=== PATIENT | female | born 1955 | race Caucasian/White ===

== ENCOUNTER 2016-05-04 12:39 | Emergency (ER) | payer OTHER ==
[2016-05-04] MEDS ORDERED: DICYCLOMINE HCL INJ 20 MG/2 ML AMP IM ONE (13:28)
--- NOTE | 2016-05-04 13:38 | ED.PDOC ---
History of Present Illness - General Chief Complaint: Abdominal Pain Stated Complaint: mid epigastric discomfort Time Seen by Provider: 05/04/16 12:51 Information Source: patient, RN notes reviewed, Vital Signs reviewed Exam Limitations: no limitations - History of Present Illness Initial Comments: This 60 y/o female comes in complaining of epigastric pain -- severe. It is a sharp pain and continuous. No radiation. She has an appointment with cardiology in a couple of weeks due to some irregularities in her EKG done by her PCP. She has had upper left chest pain for awhile. The pain today is different. She has had nausea/vomiting and diarrhea since last night. Has not eaten since yesterday morning because she could not keep anything down. Abdominal Pain Onset Location: epigastric Pain Radiation: no radiation Quality: severe, sharpness Timing/Duration: 24 hours Improving Factors: nothing Worsening Factors: eating Associated Symptoms: chest pain, diarrhea, fever/chills, headache, nausea/ vomiting, shortness of breath, weakness Review of Systems - Review of Systems Constitutional: States: chills, fever EENTM: States: no symptoms reported Respiratory: States: short of breath Cardiology: States: chest pain, palpitations Gastrointestinal/Abdominal: States: abdominal pain, diarrhea, nausea, vomiting Genitourinary: States: no symptoms reported Musculoskeletal: States: back pain, neck pain Skin: States: no symptoms reported Neurological: States: headache Endocrine: States: intolerance to cold Hematologic/Lymphatic: States: no symptoms reported All other Systems: Reviewed and Negative Past Medical History (General) - Patient Medical History Hx Seizures: No Hx Stroke: No Hx Dementia: No Hx Asthma: No Hx of COPD: No Hx Cardiac Disorders: No Hx Congestive Heart Failure: No Hx Pacemaker: No Hx Hypertension: Yes Hx Thyroid Disease: No Hx Diabetes: No Hx Gastroesophageal Reflux: Yes Hx Renal Disease: No Hx Cancer: Yes - Skin Hx of HIV: No Hx MRSA: No - Vaccination History Hx Influenza Vaccination: No Hx Pneumococcal Vaccination: Yes - Social History Hx Tobacco Use: No Family Medical History - Family History Mother Family History: Unknown Living Status: Unknown Hx Family Congestive Heart Failure: Yes Hx Family Hypertension: Yes Hx Family Stroke: Yes Hx Family Diabetes: Yes Father Hx Family Congestive Heart Failure: Yes Physical Exam - Physical Exam General Appearance: Alert, Obvious distress Eyes, Ears, Nose, Throat Exam: normal ENT inspection Respiratory: lungs clear, normal breath sounds, no respiratory distress, no accessory muscle use Cardiovascular/Chest: regular rate, rhythm, no edema, no gallop Gastrointestinal/Abdominal: normal bowel sounds, soft, no organomegaly, tenderness - epigastric and RUQ Extremity: normal range of motion, non-tender, normal inspection, no pedal edema Neurologic: no motor/sensory deficits, alert, normal mood/affect, oriented x 3 Skin Exam: normal color, warm/dry Special Observations: C/O out of proportion Progress - Results/Orders Results/Orders: 05/04/16 05/04/16 12:46 13:45 Temperature 98.8 F Pulse Rate [ 67 56 L Left Radial] Respiratory 20 20 Rate Blood Pressure 117/72 124/58 [Right Arm] O2 Sat by Pulse 96 99 Oximetry 05/04/16 13:45 EKG STAT 05/04/16 14:58 URINE CULTURE W/COLONY COUNT Stat 05/04/16 15:16 Hold Metformin x 48Hrs [id number] Laboratory Results WBC 5.3 K/mm3 (4.8-10.8) 05/04/16 13:15 RBC 5.07 M/mm3 (4.20-5.40) 05/04/16 13:15 Hgb 14.8 gm/dL (12.0-16.0) 05/04/16 13:15 Hct 45.2 % (36.0-47.0) 05/04/16 13:15 MCV 89.3 fl (81.0-99.0) 05/04/16 13:15 MCH 29.2 pg (27.0-31.0) 05/04/16 13:15 MCHC 32.7 g/dL (33.0-37.0) L 05/04/16 13:15 RDW 14.4 % (11.5-14.5) 05/04/16 13:15 Plt Count 173 K/mm3 (130-400) 05/04/16 13:15 MPV 8.7 fl (7.40-10.4) 05/04/16 13:15 Absolute Neuts (auto) 4.10 K/uL (1.8-6.8) 05/04/16 13:15 Absolute Lymphs (auto) 0.90 K/uL (1.0-3.4) L 05/04/16 13:15 Absolute Monos (auto) 0.20 K/uL (0.2-0.8) 05/04/16 13:15 Absolute Eos (auto) 0.00 K/uL (0.0-0.4) 05/04/16 13:15 Absolute Basos (auto) 0.00 K/uL (0.0-0.1) 05/04/16 13:15 Neutrophils % 76.9 % (42.0-78.0) 05/04/16 13:15 Lymphocytes % 17.9 % (20.0-50.0) L 05/04/16 13:15 Monocytes % 4.1 % (2.0-9.0) 05/04/16 13:15 Eosinophils % 0.9 % (1.0-5.0) L 05/04/16 13:15 Basophils % 0.2 % (0.0-2.0) 05/04/16 13:15 Sodium 135 mmol/L (135-145) 05/04/16 13:15 Potassium 3.1 mmol/L (3.6-5.0) L 05/04/16 13:15 Chloride 102 mmol/L (101-111) 05/04/16 13:15 Carbon Dioxide 23 mmol/L (21-31) 05/04/16 13:15 Anion Gap 13.1 (12-18) 05/04/16 13:15 BUN 18 mg/dL (7-18) 05/04/16 13:15 Creatinine 0.93 mg/dL (0.6-1.3) 05/04/16 13:15 BUN/Creatinine Ratio 19.4 (10-20) 05/04/16 13:15 Random Glucose 134 mg/dL (70-105) H 05/04/16 13:15 Serum Osmolality 274.0 mOsm/L (275-295) L 05/04/16 13:15 Calcium 8.6 mg/dL (8.4-10.2) 05/04/16 13:15 Total Bilirubin 0.8 mg/dL (0.2-1.0) 05/04/16 13:15 AST 25 IU/L (10-42) 05/04/16 13:15 ALT 29 IU/L (10-60) 05/04/16 13:15 Alkaline Phosphatase 35 IU/L (42-121) L 05/04/16 13:15 Creatine Kinase 47 IU/L (26-140) 05/04/16 13:15 CK-MB (CK-2) 1.3 ng/mL (0.0-4.4) 05/04/16 13:15 CK-MB (CK-2) % Not Reportable 05/04/16 13:15 Troponin I < 0.02 ng/mL (0.01-0.05) 05/04/16 13:15 B-Natriuretic Peptide 28.1 pg/ml (0-100) 05/04/16 13:15 Serum Total Protein 6.7 gm/dL (6.4-8.2) 05/04/16 13:15 Albumin 3.7 g/dl (3.2-5.5) 05/04/16 13:15 Globulin 3.0 gm/dL (2.3-3.5) 05/04/16 13:15 Albumin/Globulin Ratio 1.2 (1.1-1.9) 05/04/16 13:15 Lipase 26 U/L (22-51) 05/04/16 13:15 Urine Color Yellow (Yellow) 05/04/16 14:58 Urine Appearance Clear (Clear) 05/04/16 14:58 Urine pH 5.5 (4.5-7.8) 05/04/16 14:58 Ur Specific [place] 1.025 (1.005-1.030) 05/04/16 14:58 Urine Protein Negative mg/dL 05/04/16 14:58 Urine Glucose (UA) Negative mg/dL (Negative) 05/04/16 14:58 Urine Ketones 40 mg/dL (NEGATIVE) H 05/04/16 14:58 Urine Blood Negative (Negative) 05/04/16 14:58 Urine Nitrite Positive H 05/04/16 14:58 Urine Bilirubin Negative (NEGATIVE) 05/04/16 14:58 Urine Urobilinogen 0.2 mg/dL (0.2-1.0) 05/04/16 14:58 Ur Leukocyte Esterase Negative (Negative) 05/04/16 14:58 Urine RBC 0-1 /hpf 05/04/16 14:58 Urine WBC 5-10 /hpf H 05/04/16 14:58 Ur Epithelial Cells 3-5 /hpf 05/04/16 14:58 Urine Bacteria 4+ H 05/04/16 14:58 - EKG/XRAY/CT EKG: Yuriy, Sinus, nonspecific ST T wave Chg Comments: 57bpm, NML axis, T-wave inv. in V1-V3, NML int., No change from 04/12 XRAY: chest Xray Comments: Bilateral atelectasis/infiltrate CT: Abd/Pelv: Gall stone, o/w NML abd CT CT Ordered: Yes CT Interpretation Call Back: No - Report CT Interpretation Call Back Date: 05/04/16 CT Interpretation Call Back Time: 16:15 Departure - Departure Clinical Impression: Cholecystitis UTI (urinary tract infection) Qualifiers: Urinary tract infection type: site unspecified Hematuria presence: without hematuria Qualifier Code: (N39.0) Urinary tract infection, site not specified Time of Disposition: 16:57 Disposition: Discharge to Home or Self Care Condition: Fair Departure Forms: ED Discharge - Pt. Copy, Patient Portal Self Enrollment Instructions: DI for Abdominal Pain-Adult, Gallstones, DI for Gallstones, Urinary Tract Infection Diet: bland diet Prescriptions: Dicyclomine HCl [Bentyl] 20 mg PO QID PRN #40 cap PRN Reason: Abdominal Cramping Ciprofloxacin HCl 250 mg PO BID #6 tab Tramadol HCl 50 mg PO Q6H PRN #15 tab PRN Reason: Abdominal Distress Ondansetron [Zofran Odt] 4 mg PO Q8H PRN #12 tab PRN Reason: Nausea/Vomiting Home Medications: Ambulatory Orders Aspirin [Baby Aspirin] 81 mg PO QD 04/02/16 Atenolol [Tenormin] 25 mg PO DAILY 04/02/16 Calcium 1,200 mg PO DAILY 04/02/16 Calcium 600 mg PO BEDTIME 04/02/16 Hydrochlorothiazide 25 mg PO DAILY 04/02/16 Lisinopril 20 mg PO DAILY 04/02/16 Nitroglycerin 0.4 mg Tab [Nitrostat] 0.4 mg SL Q 5 PRN #1 bttl 04/02/16 Omeprazole Magnesium [Prilosec Otc] 20 mg PO DAILY 04/02/16 Potassium 99 mg PO DAILY 04/02/16 Ciprofloxacin HCl 250 mg PO BID #6 tab 05/04/16 Dicyclomine HCl [Bentyl] 20 mg PO QID PRN #40 cap 05/04/16 Ondansetron [Zofran Odt] 4 mg PO Q8H PRN #12 tab 05/04/16 Tramadol HCl 50 mg PO Q6H PRN #15 tab 05/04/16
--- NOTE | 2016-05-04 14:03 | RAD ---
EXAM DESCRIPTION: X-RAY CHEST- ONE VIEW CLINICAL HISTORY: Epigastric pain. COMPARISON: 04/02/2016 TECHNIQUE: Single view of the chest. FINDINGS: There is presence of mild bilateral lower lung zone discoid atelectasis/infiltrates There is no pleural effusion There are no pneumothoraces. The cardiomediastinal silhouette is unremarkable. IMPRESSION: There is presence of mild bilateral lower lung zone discoid atelectasis/infiltrates Electronically signed by: Zack Tinoco MD 05/04/2016 14:01
--- NOTE | 2016-05-04 16:13 | CT ---
EXAM DESCRIPTION: CT ABDOMEN PELVIS WITHOUT IV CONTRAST CLINICAL HISTORY: 60-year-old female with epigastric/right upper quadrant pain. COMPARISON: None. TECHNIQUE: CT of the abdomen and pelvis was performed without contrast. Oral contrast was not administered. Multiplanar reformatted images were provided. FINDINGS: Evaluation of solid organ pathology is limited secondary to lack of intravenous contrast. Within these limitations, the following observations are made. Chest: Evaluation through the lung bases reveals no focal opacity, pleural effusion or pneumothorax. Few scattered 2-4 mm pulmonary micronodules are identified throughout the bilateral lungs, a nonspecific finding may reflect sequela of nonspecific infectious or inflammatory process. Heart size is within normal limits. No pericardial effusion. Abdomen and pelvis: Diffuse hepatic steatosis. Single calcification present within the dependent gallbladder compatible with cholelithiasis. The liver, gallbladder, pancreas, spleen, bilateral kidneys and bilateral adrenal glands are otherwise within normal limits. The vessels are normal in caliber. No abdominopelvic lymph nodes are noted to be pathologically enlarged by CT measurement criteria. Slightly hazy appearance of the left anjali abdominal mesentery with scattered multiple mesenteric lymph nodes, none of which are pathologically enlarged by CT measurement criteria. Diverticular disease without findings to suggest diverticulitis. The bowel is within normal limits with fecal debris present throughout the large bowel. There is no abnormal bowel wall thickness or bowel dilation. No free air. No free abdominopelvic fluid collections. The appendix is not visualized. The osseous structures reveal degenerative change and lower lumbar spine postoperative change with surgical screws traversing the bilateral pedicles of L5 and S1 vertebral levels. Stabilization rods are present. Chronic appearing grade 1/2 anterolisthesis of L5 relative to S1 of uncertain etiology, may be secondary to sequela of prior trauma, facet degeneration without findings to suggest clear pars defect, however may be sclerosis and fused. Intervertebral body L5-S1 fusion present. Few scattered foci of hypoattenuation with striation present within the visualized thoracolumbar spine compatible with hemangioma. IMPRESSION: 1. No specific acute intra-abdominal findings are noted to suggest etiology of the patient's abdominal pain. 2. Few scattered 2-4 mm pulmonary micro nodules are identified throughout the bilateral lungs, a nonspecific finding may reflect sequela of nonspecific infectious or inflammatory process. 3. Diffuse hepatic steatosis. 4. Single calcification present within the dependent gallbladder compatible with cholelithiasis. 5. Diverticular disease without findings to suggest diverticulitis. As per Fleischner Society guidelines for follow-up and management of pulmonary nodules: For patient at low risk (minimal or absent history of smoking and of other known risk factors), no follow-up needed. For patient at high risk (history of smoking or of other known risk factors), recommend initial follow-up chest CT at 12 months; if unchanged, no further follow-up needed. Electronically signed by: Patricia Wilkinson MD 05/04/2016 16:12
[2016-05-04] MEDS ORDERED: POTASSIUM CHLORIDE 20 MEQ TAB PO ONE (16:45)
[2016-05-04 17:17] VITALS: BP 122/72; TEMP 98.9; O2SAT 94
== END 2016-05-04 17:12 | disposition home or self-care (01) ==
LOC: ER 12:39
DX: K81.9 Cholecystitis, unspecified (principal); N39.0 Urinary tract infection, site not specified; Z79.82 Long term (current) use of aspirin; Z79.899 Other long term (current) drug therapy; Z82.49 Family history of ischemic heart disease and other diseases of the circulatory system; K21.9 Gastro-esophageal reflux disease without esophagitis; I10 Essential (primary) hypertension; Z85.828 Personal history of other malignant neoplasm of skin
CPT/HCPCS: 71010; 74176; 80053; 81001; 82550; 82553; 83690; 83880; 84484; 85025; 87086; 87088; 87186; 93005; J0500

== ENCOUNTER 2016-09-09 05:56 | Day surgery (SDC) | payer OTHER ==
[2016-09-09] MEDS ORDERED: SODIUM CHL 0.9% 100ML MINI-BAG 100 ML IVPB ONE (06:15)
[2016-09-09] MEDS ORDERED: ceFAZolin SODIUM 1 GM VIAL ONE (06:15)
[2016-09-09] MEDS ORDERED: LACTATED RINGERS 1,000 ML ONE (06:15)
[2016-09-09] MEDS ORDERED: DEXAMETHASONE INJ 10 MG/ML VIAL ONE (07:00)
[2016-09-09] MEDS ORDERED: ONDANSETRON INJ 4 MG/2 ML VIAL ONE (07:00)
[2016-09-09] MEDS ORDERED: PROPOFOL 200 MG/20 ML VIAL IV ONE (07:00)
[2016-09-09] MEDS ORDERED: NEOSTIGMINE METHYLSULFATE 1 MG/ML ML IV ONE (07:00)
[2016-09-09] MEDS ORDERED: ATROPINE SULFATE 0.4 MG/ML 1ML VIAL ONE (07:00)
[2016-09-09] MEDS ORDERED: METOCLOPRAMIDE HCL INJ 10 MG/2 ML VIAL ONE (07:00)
[2016-09-09] MEDS ORDERED: MIDAZOLAM INJ 5 MG/5 ML VIAL ONE (07:01)
[2016-09-09] MEDS ORDERED: ROCURONIUM BROMIDE 10 MG/ML VIAL ONE (07:01)
[2016-09-09] MEDS ORDERED: fentaNYL CITRATE INJ 50 MCG/ML AMP ONE (07:01)
[2016-09-09] MEDS ORDERED: LIDOCAINE 2 % GEL 5 ML TUBE TOP ONE (07:01)
[2016-09-09] MEDS ORDERED: HEPARIN SODIUM (PORCINE) 10,000 UNITS/ML VIAL ONE (07:57)
[2016-09-09] MEDS ORDERED: BUPIVACAINE 0.25% W/EPI 50 ML VIAL INJ ONE (07:57)
[2016-09-09] MEDS ORDERED: traMADol HCL 50 MG TAB ONE (10:45)
--- NOTE | 2016-09-09 10:50 | OP ---
DATE OF PROCEDURE: 09/09/16 PREOPERATIVE DIAGNOSIS: 1. Symptomatic cholelithiasis. 2. Fatty infiltration of the liver. POSTOPERATIVE DIAGNOSIS: 1. Symptomatic cholelithiasis. 2. Fatty infiltration of the liver. 3. Chronic cholecystitis. PROCEDURE: 1. Laparoscopic cholecystectomy with intraoperative cholangiography using fluoroscopy. 2. Wedge biopsy, right lobe of the liver. SURGEON: Charlie Chi MD. DOCUMENT PROCESSOR: None. ANESTHESIA: Local infiltration of 0.25% Marcaine with epinephrine and general endotracheal anesthesia. INDICATION: The patient is a 61-year-old female who has had right upper quadrant pain with radiation to the back and chest pain that was first felt to be cardiac in nature, however, this was ruled out. She had an ultrasound which diagnosed cholelithiasis. After the risks, benefits and alternatives to the procedure were discussed and accepted and we obtained clearance from the patient 's gum dipper, Dr. Greenfield, she was brought to the Surgical Suite today for cholecystectomy. FINDINGS: The gallbladder wall was minimally thickened. There was at least one gallstone palpable through the gallbladder. Intraoperative cholangiography revealed free flow into the duodenum with no filling defects or strictures noted. Wedge biopsy of the liver was obtained from the right lobe of the liver just lateral to the falciform ligament. Pathology is pending. DESCRIPTION OF PROCEDURE: After adequate general endotracheal anesthesia was obtained, the patient was prepped and draped in the usual sterile manner. She had been given 2 grams of Ancef. Surgical time-out was taken. The infraumbilical area was infiltrated with 0.25% Marcaine with epinephrine. A curvilinear incision was fashioned and carried down through the subcutaneous tissue to the midline fascia. Traction sutures were placed on either side of the midline. A small incision was made in the midline fascia and the peritoneum was opened bluntly. Homer trocar was introduced under direct vision into the abdominal cavity and fixed in place with the 20 mL balloon. CO2 was then insufflated until a pressure of 12 mmHg was reached and the abdomen was tympanitic in all four quadrants. When this was done, the laparoscope was introduced. The abdomen was inspected with the previously noted findings. The patient was then placed in reverse Trendelenburg position, turned to the left side. The upper abdominal ports were placed under direct vision. The gallbladder was grasped, retracted anteriorly and laterally. The neck of the gallbladder was retracted laterally. The triangle of Calot was then explored using blunt dissection with the cystic duct and cystic artery identified and isolated. They were both clipped, cystic duct was hemoclipped once proximally. The cystic artery was hemoclipped distally. A small incision was made in the cystic duct. The cholangiogram catheter was introduced through a separate stab wound in the right upper quadrant, introduced into the cystic duct and clipped in place. Cholangiograms were then taken using dye that was diluted out another 50% than normal. 15 mL of this dilute dye were used. After the cholangiogram, as much dye as possible was aspirated. The cholangiograms were done, which revealed free flow into the duodenum with no filling defects or strictures noted. When this was done, the cystic duct catheter was removed after the aspiration. The cystic duct was hemoclipped three times distally. The cystic artery was clipped twice proximally and they were then both cut. The gallbladder was then dissected free from the gallbladder bed of the liver using electrocautery. The gallbladder was removed from the infraumbilical port site in the usual manner under direct vision. When this was done, the subhepatic space was inspected and hemostasis was noted to be adequate. At this point, the wedge biopsy of the liver was performed with sharp scissors. It was removed from the infraumbilical port site and hemostasis was obtained with electrocautery turned up to 50. When hemostasis was noted to be adequate, the subhepatic and subphrenic space were irrigated copiously with saline. Again, the gallbladder bed of the liver was inspected. The kimberli hepatis was inspected and no bleeding or bile leak was identified. The biopsy site was again inspected and good hemostasis was noted. The upper abdominal ports were removed with some oozing from both the lateral and mid upper ports and these were controlled with electrocautery. The remaining port was removed and good hemostasis was noted. At this point, the CO2, the laparoscope and the infraumbilical port were removed. The infraumbilical port site fascia was approximated with a single [id number] suture of 0 Vicryl. Subcutaneous tissue was irrigated with saline. Skin edges were approximated with 4-0 Vicryl subcuticular sutures, benzoin and Steri-Strips. Sterile dressings were applied. The patient was awakened and taken to the Recovery Room in good and stable condition. Estimated blood loss was less than 50 mL. All sponge, needle and instrument counts were correct. #[id number] [facility]
[2016-09-09] MEDS ORDERED: traMADol HCL 50 MG TAB PO ONE (11:07)
[2016-09-09 13:32] VITALS: BP 115/68; TEMP 98.6; O2SAT 96
== END 2016-09-09 12:30 | disposition home or self-care (01) ==
LOC: AMB 05:56
PROVIDERS: ATTEND Surgery
DX: K80.10 Calculus of gallbladder with chronic cholecystitis without obstruction (principal); K76.0 Fatty (change of) liver, not elsewhere classified; K59.00 Constipation, unspecified; I10 Essential (primary) hypertension; K21.9 Gastro-esophageal reflux disease without esophagitis; Z88.8 Allergy status to other drugs, medicaments and biological substances; Z79.82 Long term (current) use of aspirin; Z79.899 Other long term (current) drug therapy
CPT/HCPCS: 00790; 36415; 47100; 47563; 76000; 80048; 81001; 85025; J0690; J1100; J1644; J2250; J2405; J2710; J2765; J3010; J3490; J7050; J7120

== ENCOUNTER → 2016-10-31 | Outpatient (CLI) | payer OTHER | END | disposition home or self-care (01) | LOC: LAB.O 09:23 | PROVIDERS: ATTEND Emergency Medicine | DX: R53.83 Other fatigue (principal); Z13.220 Encounter for screening for lipoid disorders; I10 Essential (primary) hypertension ==

== ENCOUNTER 2017-02-13 20:54 | Emergency (ER) | payer OTHER ==
[2017-02-13 21:15] VITALS: O2SAT 96
--- NOTE | 2017-02-13 21:33 | ED.PDOC ---
History of Present Illness - General Chief Complaint: Cardiovascular Problem Stated Complaint: headache, neck pain, irregular heartbeat Time Seen by Provider: 02/13/17 20:57 Source: patient Exam Limitations: no limitations - History of Present Illness Initial Comments: Irlanda Duran 61 y/o female stated had headache today tightness at back of her neck going up back of head and also felt pounding heartbeat.Stated under lots of stress cleaning up her house since she did not have any help today, denies chest pains,dizziness,blurry vision,.Had seen medical housekeeper in the past for chest pain symptoms work up was done no acute abnormalities noted. Timing/Duration: 1-3 hours Severity: moderate Improving Factors: nothing Associated Symptoms: other - see hpi Allergies/Adverse Reactions: Allergies Codeine Allergy (Unknown, Unverified 03/02/13 11:21) Iodine Allergy (Unknown, Unverified 03/02/13 11:21) Latex Allergy (Verified 04/02/16 12:14) Home Medications: Ambulatory Orders Aspirin [Baby Aspirin] 81 mg PO QD 04/02/16 Atenolol [Tenormin] 50 mg PO DAILY 04/02/16 Hydrochlorothiazide 25 mg PO BID 04/02/16 Lisinopril 20 mg PO DAILY@0700 04/02/16 Nitroglycerin 0.4 mg Tab [Nitrostat] 0.4 mg SL Q 5 PRN #1 bttl 04/02/16 Potassium 99 mg PO BID 04/02/16 Calcium Carbonate-Vitamin D [Calcium + D3 600-200 mg-Unit] 1 tab PO DAILY Review of Systems - Review of Systems Constitutional: States: no symptoms reported EENTM: States: no symptoms reported Respiratory: States: no symptoms reported Cardiology: States: see HPI Genitourinary: States: no symptoms reported Musculoskeletal: States: no symptoms reported Skin: States: no symptoms reported Neurological: States: see HPI Past Medical History (General) - Patient Medical History Hx Seizures: No Hx Stroke: No Hx Dementia: No Hx Asthma: No Hx of COPD: No Hx Cardiac Disorders: Yes - irregular heart beat Hx Congestive Heart Failure: No Hx Pacemaker: No Hx Hypertension: Yes Hx Thyroid Disease: No Hx Diabetes: No Hx Gastroesophageal Reflux: Yes Hx Renal Disease: No Hx Cancer: Yes - skin Hx of HIV: No Hx Hepatitis C: No Hx MRSA: No Surgical History: appendectomy, cholecystectomy, other - right knee,btl - Vaccination History Hx Tetanus, Diphtheria Vaccination: No Hx Influenza Vaccination: No Hx Pneumococcal Vaccination: No Immunizations Up to Date: Yes - Social History Hx Tobacco Use: No Hx Alcohol Use: No - Female History Patient is a Female of Child Bearing Age (10 -59 yrs old): No Patient : No Family Medical History - Family History Mother Family History: Unknown Living Status: Unknown Hx Family Congestive Heart Failure: Yes Hx Family Hypertension: Yes Hx Family Stroke: Yes Hx Family Diabetes: Yes Father Hx Family Congestive Heart Failure: Yes Physical Exam - Physical Exam General Appearance: Alert, Comfortable, No apparent distress Eye Exam: bilateral normal Ears, Nose, Throat: hearing grossly normal, normal ENT inspection Neck: non-tender, full range of motion, supple Respiratory: chest non-tender, lungs clear, normal breath sounds Cardiovascular/Chest: normal peripheral pulses, regular rate, rhythm, no murmur Peripheral Pulses: radial,right: 2+, radial,left: 2+ Gastrointestinal/Abdominal: non tender, soft, no organomegaly Back Exam: no vertebral tenderness Extremity: no pedal edema, no calf tenderness 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50 Absolute Lymphs (auto) 2.60 Absolute Monos (auto) 0.40 Absolute Eos (auto) 0.20 Absolute Basos (auto) 0.00 Neutrophils % 51.4 Lymphocytes % 38.6 Monocytes % 6.2 Eosinophils % 3.4 Basophils % 0.4 - EKG/XRAY/CT EKG: Yuriy, Sinus, nonspecific ST T wave Chg, Unchanged from - 04/02/16 Comments: heart rate-58 Departure - Departure Clinical Impression: Pounding heartbeat Headache Qualifiers: Headache type: tension-type Headache chronicity pattern: unspecified pattern Intractability: not intractable Qualified Code(s): G44.209 - Tension-type headache, unspecified, not intractable Time of Disposition: 22:25 Disposition: Discharge to Home or Self Care Condition: Good Departure Forms: ED Discharge - Pt. Copy, Patient Portal Self Enrollment Instructions: Easing a Headache the Natural Way, Tension Headache (Alternative Therapy), Tension Headache Referrals: KAT PANDEY [Primary Care Provider] - 1-2 Weeks Home Medications: Ambulatory Orders Aspirin [Baby Aspirin] 81 mg PO QD 04/02/16 Atenolol [Tenormin] 50 mg PO DAILY 04/02/16 Hydrochlorothiazide 25 mg PO BID 04/02/16 Lisinopril 20 mg PO DAILY@0700 04/02/16 Nitroglycerin 0.4 mg Tab [Nitrostat] 0.4 mg SL Q 5 PRN #1 bttl 04/02/16 Potassium 99 mg PO BID 04/02/16 Calcium Carbonate-Vitamin D [Calcium + D3 600-200 mg-Unit] 1 tab PO DAILY Additional Instructions: RETURN TO EMERGENCY ROOM NEEDED;Follow up with primary md 02/17/2017 call for appointment as needed
[2017-02-13] MEDS ORDERED: ORPHENADRINE CITRATE 30 MG/ML AMP IM ONE (22:22)
[2017-02-13] MEDS ORDERED: traMADol HCL 50 MG (ER DISP) # 6 TABS PO ONE (22:23)
[2017-02-13 22:49] VITALS: BP 132/76; TEMP 98
== END 2017-02-13 22:49 | disposition home or self-care (01) ==
LOC: ER 20:54
DX: G44.209 Tension-type headache, unspecified, not intractable (principal); R00.0 Tachycardia, unspecified; I10 Essential (primary) hypertension; K21.9 Gastro-esophageal reflux disease without esophagitis; Z85.828 Personal history of other malignant neoplasm of skin; Z79.82 Long term (current) use of aspirin; Z79.899 Other long term (current) drug therapy
CPT/HCPCS: 36415; 85025; 93005; J2360

== ENCOUNTER 2017-12-31 23:51 | Emergency (ER) | payer SELFPAY ==
[2018-01-01] MEDS ORDERED: PROMETHAZINE HCL INJ 25 MG in SODIUM CHLORIDE 0.9% 50ML 50 ML IVPB ONE (00:18)
[2018-01-01] MEDS ORDERED: ALPRAZolam 0.25 MG TAB PO ONE (00:19)
[2018-01-01] MEDS ORDERED: ASPIRIN TABLET 325 MG TAB PO ONE (00:19)
[2018-01-01] MEDS ORDERED: PROMETHAZINE HCL INJ 25 MG/ML VIAL ONE (00:30)
[2018-01-01] MEDS ORDERED: SODIUM CHLORIDE 0.9% 50ML 50 ML ONE (00:31)
[2018-01-01 00:48] VITALS: TEMP 97.2
--- NOTE | 2018-01-01 01:10 | CT ---
EXAM DESCRIPTION: CT of the head without contrast CLINICAL HISTORY: [place] slurred speech COMPARISON: None available TECHNIQUE: Axial CT of the head obtained from the skull apex to the skull base without contrast. FINDINGS: No acute intracranial hemorrhage identified. No mass, mass effect, shift of the midline, abnormal extra-axial fluid collection or CT evidence of acute ischemic change identified. The ventricular system and sulcal have normal size and morphology. Scattered areas of hypodensity throughout the supratentorial white matter are nonspecific and may be related to chronic small vessel ischemic change. The visualized paranasal sinuses and the mastoids are clear. No skull fracture identified. Visualized orbits and globes are unremarkable. Atherosclerotic calcification of the intracranial internal carotid arteries. DLP: 859.97 mGy-cm IMPRESSION: 1. No acute intracranial abnormality by CT criteria. This exam was performed according to our departmental dose-optimization program, which includes automated exposure control, adjustment of the mA and/or kV according to patient size and/or use of iterative reconstruction technique. Electronically signed by: Ramiro Cartwright 01/01/2018 1:09 AM CDT
[2018-01-01] MEDS ORDERED: SODIUM CHLORIDE 0.9% 1000ML 1,000 ML IVS ONE (01:33)
--- NOTE | 2018-01-01 01:59 | RAD ---
EXAM DESCRIPTION: Abdomen Series CLINICAL HISTORY: gutierrez, nv, slurred speech COMPARISON: None. FINDINGS: Single view of the chest with upright and supine views of the abdomen. Atherosclerotic calcification of the aortic arch. Heart is not enlarged. No consolidation, pneumothorax, or pleural effusion. No dilated loops of large or small bowel. No abnormal calcifications. Prior cholecystectomy. Posterior say and screw fixation at L5/S1. No acute osseous abnormalities. No definite free intraperitoneal air identified. IMPRESSION: 1. No acute pulmonary process. Nonobstructive bowel gas pattern. Electronically signed by: Ramiro Cartwright 01/01/2018 1:58 AM CDT
--- NOTE | 2018-01-01 02:18 | ED.PDOC ---
History of Present Illness - General Chief Complaint: Neuro Symptoms/Deficits Stated Complaint: slured speech, headache Time Seen by Provider: 01/01/18 00:10 Source: patient Exam Limitations: no limitations - History of Present Illness Initial Comments: The patient is a 62-year-old female presenting to emergency room secondary to having an episode of mild slurred speech followed by some nausea and a headache. She has had this constellation of symptoms before. She also felt possibility may be that she was having some palpitations. No chest pain. No syncope. There was questionable near syncope. This all started after she went out for a walk. She does take a diuretic. No fever. No back pain. No chest pain. No shortness of breath. Timing/Duration: 4-6 hours Severity: mild Improving Factors: nothing Worsening Factors: nothing Associated Symptoms: malaise, nausea/vomiting Allergies/Adverse Reactions: Allergies Codeine Allergy (Unknown, Unverified 03/02/13 11:21) Iodine Allergy (Unknown, Unverified 03/02/13 11:21) Latex Allergy (Verified 04/02/16 12:14) Home Medications: Ambulatory Orders Aspirin [Baby Aspirin] 81 mg PO QD 04/02/16 Atenolol [Tenormin] 50 mg PO DAILY 04/02/16 Hydrochlorothiazide 25 mg PO BID 04/02/16 Lisinopril 20 mg PO DAILY@0700 04/02/16 Nitroglycerin 0.4 mg Tab [Nitrostat] 0.4 mg SL Q 5 PRN #1 bttl 04/02/16 Potassium 99 mg PO BID 04/02/16 Calcium Carbonate-Vitamin D [Calcium + D3 600-200 mg-Unit] 1 tab PO DAILY Ciprofloxacin [Cipro] 250 mg PO Q12H #14 tablet 01/01/18 Ondansetron [Zofran Odt] 4 mg PO Q4H PRN #10 tab 01/01/18 Review of Systems - Review of Systems Constitutional: States: malaise EENTM: States: no symptoms reported Respiratory: States: no symptoms reported Cardiology: States: no symptoms reported Gastrointestinal/Abdominal: States: nausea, vomiting - no blood or bile in the vomitus Genitourinary: States: no symptoms reported Musculoskeletal: States: other - chronic diffuse pain issues Skin: States: no symptoms reported Neurological: States: headache Endocrine: States: no symptoms reported All other Systems: No Change from Baseline Past Medical History (General) - Patient Medical History Hx Seizures: No Hx Stroke: No Hx Dementia: No Hx Asthma: No Hx of COPD: No Hx Cardiac Disorders: Yes - arrythmias Hx Congestive Heart Failure: No Hx Pacemaker: No Hx Hypertension: Yes Hx Thyroid Disease: No Hx Diabetes: No Hx Gastroesophageal Reflux: Yes Hx Renal Disease: No Hx Cancer: Yes - skin Hx of HIV: No Hx Hepatitis C: No Hx MRSA: No Surgical History: appendectomy, cholecystectomy, other - Vaccination History Hx Tetanus, Diphtheria Vaccination: No Hx Influenza Vaccination: No Hx Pneumococcal Vaccination: No - Social History Hx Tobacco Use: No Hx Alcohol Use: No Hx Substance Use: No Hx Depression: No - Female History Patient is a Female of Child Bearing Age (10 -59 yrs old): No Patient : No - Triage Comment ED Triage Comment: Pt reports she had gone for a walk and started having some visual changes, strobes across her vision. Pt then went home and was trying to talk with her grandson, "my words were not coming out right." Pt reports she has been under stress lately. Pt states having a frontal MILNER and nausea. She believes maybe cause by the moles she has near fore head. Family Medical History - Family History Mother Family History: Unknown Living Status: Unknown Hx Family Congestive Heart Failure: Yes Hx Family Hypertension: Yes Hx Family Stroke: Yes Hx Family Diabetes: Yes Father Hx Family Congestive Heart Failure: Yes Physical Exam - Physical Exam General Appearance: Alert, No apparent distress Eye Exam: bilateral normal Ears, Nose, Throat: hearing grossly normal, normal ENT inspection, normal pharynx Neck: non-tender, full range of motion, supple Respiratory: lungs clear, normal breath sounds, no respiratory distress, no accessory muscle use Cardiovascular/Chest: normal peripheral pulses, regular rate, rhythm, no edema Peripheral Pulses: radial,right: 2+, radial,left: 2+, dorsalis pedis,right: 2+, dorsalis pedis,left: 2+ Gastrointestinal/Abdominal: non tender, soft Rectal Exam: deferred Back Exam: normal inspection, no CVA tenderness, no vertebral tenderness Extremity: normal range of motion, non-tender, normal inspection, no pedal edema , normal capillary refill 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, no motor/sensory deficits, alert, normal mood/affect, oriented x 3 Skin Exam: normal color Comments: Vital Signs - 24 hr 01/01/18 01/01/18 01/01/18 00:08 01:03 01:04 Temperature 97.2 F L 97.2 F L Pulse Rate [ 66 54 L 61 left] Respiratory 18 18 18 Rate Blood Pressure 154/95 144/80 147/88 [left] O2 Sat by Pulse 97 98 100 Oximetry 01/01/18 01:05 Temperature Pulse Rate [ 57 L left] Respiratory 18 Rate Blood Pressure 156/82 [left] O2 Sat by Pulse 100 Oximetry Progress - Progress Progress: 01/01/18 02:20 the patient is a 62-year-old female presenting after what I believe was an episode of near syncope with associated nausea and vomiting. This is likely due to dehydration, contributed to by her diuretic. her beta margaret likely prevented her from compensating as well. The patient is receiving a liter of IV fluids. she needs to reduce her hydrochlorothiazide by half. She has received a dose of an antiemetic. she will be written for some Zofran for as needed use. Additionally she does have a urinary tract infection complicating the problem. She is receiving a dose of an antibiotic for that and will be placed on oral ciprofloxacin twice daily for the next 5 days. She does need to have a repeat urinalysis with her primary care doctor early next week to make sure this is clearing. ER warnings were given. - Results/Orders Results/Orders: acute abdominal series appears benign. CT scan of the head without contrast shows no acute pathology. EKG shows mild sinus bradycardia with poor R-wave progression in anterior leads. No acute ST segment changes concerning for immediate ischemia. Normal axis. Laboratory Tests 01/01/18 01/01/18 01/01/18 00:19 00:19 00:19 WBC 7.3 RBC 4.62 Hgb 14.0 Hct 42.1 MCV 91.1 MCH 30.4 MCHC 33.4 RDW 14.2 Plt Count 169 MPV 8.3 Absolute Neuts (auto) 3.90 Absolute Lymphs (auto) 2.40 Absolute Monos (auto) 0.40 Absolute Eos (auto) 0.50 H Absolute Basos (auto) 0.00 Neutrophils % 53.4 Lymphocytes % 33.6 Monocytes % 6.2 Eosinophils % 6.4 H Basophils % 0.4 PT 9.5 INR 0.95 PTT (SP) 24.0 D-Dimer, Quantitative 0.44 Sodium 139 Potassium 3.7 Chloride 103 Carbon Dioxide 28 Anion Gap 11.7 L BUN 21 H Creatinine 0.75 BUN/Creatinine Ratio 28.0 H Random Glucose 111 H Serum Osmolality 281.2 Calcium 9.4 Total Bilirubin 0.2 AST 17 ALT 17 Alkaline Phosphatase 35 L Creatine Kinase 87 CK-MB (CK-2) 2.6 CK-MB (CK-2) % Not Reportable Troponin I < 0.02 Serum Total Protein 6.8 Albumin 4.0 Globulin 2.8 Albumin/Globulin Ratio 1.4 Amylase 52 Urine Color Urine Appearance Urine pH Ur Specific [place] Urine Protein Urine Glucose (UA) Urine Ketones Urine Blood Urine Nitrite Urine Bilirubin Urine Urobilinogen Ur Leukocyte Esterase Urine RBC Urine WBC Ur Epithelial Cells Urine Bacteria 01/01/18 00:27 WBC RBC Hgb Hct MCV MCH MCHC RDW Plt Count MPV Absolute Neuts (auto) Absolute Lymphs (auto) Absolute Monos (auto) Absolute Eos (auto) Absolute Basos (auto) Neutrophils % Lymphocytes % Monocytes % Eosinophils % Basophils % PT INR PTT (SP) D-Dimer, Quantitative Sodium Potassium Chloride Carbon Dioxide Anion Gap BUN Creatinine BUN/Creatinine Ratio Random Glucose Serum Osmolality Calcium Total Bilirubin AST ALT Alkaline Phosphatase Creatine Kinase CK-MB (CK-2) CK-MB (CK-2) % Troponin I Serum Total Protein Albumin Globulin Albumin/Globulin Ratio Amylase Urine Color Yellow Urine Appearance Clear Urine pH 6.0 Ur Specific [place] 1.025 Urine Protein Negative Urine Glucose (UA) Negative Urine Ketones Negative Urine Blood Trace-intact H Urine Nitrite Negative Urine Bilirubin Negative Urine Urobilinogen 0.2 Ur Leukocyte Esterase Trace H Urine RBC 3-5 H Urine WBC 10-20 H Ur Epithelial Cells 5-10 Urine Bacteria 1+ - EKG/XRAY/CT CT Ordered: Yes Departure - Departure Clinical Impression: Syncope, near, Dehydration Acute cystitis Qualifiers: Hematuria presence: without hematuria Qualified Code(s): N30.00 - Acute cystitis without hematuria Disposition: Discharge to Home or Self Care Condition: Fair Departure Forms: ED Discharge - Pt. Copy, Patient Portal Self Enrollment Instructions: Urinary Tract Infection, Adult (DC), Dehydration, Adult (DC) Diet: bland diet Activity: increase activity as tolerated Referrals: KAT PANDEY [Primary Care Provider] - 1-5 Days Prescriptions: Ciprofloxacin [Cipro] 250 mg PO Q12H #14 tablet Ondansetron [Zofran Odt] 4 mg PO Q4H PRN #10 tab PRN Reason: Vomiting Home Medications: Ambulatory Orders Aspirin [Baby Aspirin] 81 mg PO QD 04/02/16 Atenolol [Tenormin] 50 mg PO DAILY 04/02/16 Hydrochlorothiazide 25 mg PO BID 04/02/16 Lisinopril 20 mg PO DAILY@0700 04/02/16 Nitroglycerin 0.4 mg Tab [Nitrostat] 0.4 mg SL Q 5 PRN #1 bttl 04/02/16 Potassium 99 mg PO BID 04/02/16 Calcium Carbonate-Vitamin D [Calcium + D3 600-200 mg-Unit] 1 tab PO DAILY Ciprofloxacin [Cipro] 250 mg PO Q12H #14 tablet 01/01/18 Ondansetron [Zofran Odt] 4 mg PO Q4H PRN #10 tab 01/01/18 Additional Instructions: the patient is a 62-year-old female presenting after what I believe was an episode of near syncope with associated nausea and vomiting. This is likely due to dehydration, contributed to by her diuretic. her beta margaret likely prevented her from compensating as well. The patient is receiving a liter of IV fluids. she needs to reduce her hydrochlorothiazide by half. She has received a dose of an antiemetic. she will be written for some Zofran for as needed use. Additionally she does have a urinary tract infection complicating the problem. She is receiving a dose of an antibiotic for that and will be placed on oral ciprofloxacin twice daily for the next 5 days. She does need to have a repeat urinalysis with her primary care doctor early next week to make sure this is clearing. ER warnings were given.
[2018-01-01 02:25] VITALS: BP 145/73; O2SAT 97
== END 2018-01-01 02:51 | disposition home or self-care (01) ==
LOC: ER 23:51
DX: R55 Syncope and collapse (principal); E86.0 Dehydration; N30.00 Acute cystitis without hematuria; R51 Headache; R11.2 Nausea with vomiting, unspecified; I10 Essential (primary) hypertension; K21.9 Gastro-esophageal reflux disease without esophagitis; Z79.899 Other long term (current) drug therapy; Z79.82 Long term (current) use of aspirin; Z88.5 Allergy status to narcotic agent; Z91.040 Latex allergy status; Z91.041 Radiographic dye allergy status; Z85.828 Personal history of other malignant neoplasm of skin
CPT/HCPCS: 70450; 74019; 80053; 81001; 82150; 82550; 82553; 84484; 85025; 85379; 85610; 85730; 87077; 87086; 87186; 93005; A4216; J2550; J7030

== ENCOUNTER 2018-02-23 21:03 | Emergency (ER) | payer SELFPAY ==
[2018-02-23] MEDS ORDERED: predniSONE 20 MG TAB PO ONE (21:45)
[2018-02-23] MEDS ORDERED: KETOROLAC TROMETHAMINE INJ 30 MG/ML VIAL IM ONE (21:45)
[2018-02-23] MEDS ORDERED: PROMETHAZINE HCL 25 MG TAB PO ONE (21:45)
[2018-02-23] MEDS ORDERED: HYDROcodone 7.5MG/APAP 325MG 1 EA TAB PO ONE (21:45)
[2018-02-23] MEDS ORDERED: diazePAM 5 MG TAB PO ONE (21:48)
--- NOTE | 2018-02-23 21:51 | ED.PDOC ---
History of Present Illness - General Chief Complaint: Headache Time Seen by Provider: 02/23/18 21:13 Source: patient Exam Limitations: no limitations - History of Present Illness Initial Comments: the patient is a 62-year-old female presenting to the emergency room secondary to persistent headache over the last 3-4 days. It is been fairly circumferential. It has been roving at times. She has had some mild nausea today with it. No vomiting. No focal neurological changes. She has had frequent headaches in the past and in fact had a head CT just within the last couple of months for workup showing no significant pathology. she has some pain and tightness along the paraspinal muscles of the upper cervical spine and at the base of the occiput. No nuchal rigidity. No altered mental status. No fever. Timing/Duration: other - waxing and waning for 4 days Severity: moderate Improving Factors: nothing Worsening Factors: nothing Associated Symptoms: headaches, nausea/vomiting Allergies/Adverse Reactions: Allergies Codeine Allergy (Unknown, Unverified 03/02/13 11:21) Iodine Allergy (Unknown, Unverified 03/02/13 11:21) Latex Allergy (Verified 04/02/16 12:14) Home Medications: Ambulatory Orders Aspirin [Baby Aspirin] 81 mg PO QD 04/02/16 Atenolol [Tenormin] 50 mg PO DAILY 04/02/16 Hydrochlorothiazide 25 mg PO BID 04/02/16 Lisinopril 20 mg PO DAILY@0700 04/02/16 Nitroglycerin 0.4 mg Tab [Nitrostat] 0.4 mg SL Q 5 PRN #1 bttl 04/02/16 Potassium 99 mg PO BID 04/02/16 Calcium Carbonate-Vitamin D [Calcium + D3 600-200 mg-Unit] 1 tab PO DAILY Ciprofloxacin [Cipro] 250 mg PO Q12H #14 tablet 01/01/18 Ondansetron [Zofran Odt] 4 mg PO Q4H PRN #10 tab 01/01/18 Review of Systems - Review of Systems Constitutional: States: malaise EENTM: States: no symptoms reported Respiratory: States: no symptoms reported Cardiology: States: no symptoms reported Gastrointestinal/Abdominal: States: no symptoms reported Genitourinary: States: no symptoms reported Musculoskeletal: States: no symptoms reported Skin: States: no symptoms reported Neurological: States: no symptoms reported Endocrine: States: no symptoms reported All other Systems: No Change from Baseline Past Medical History (General) - Patient Medical History Hx Seizures: No Hx Stroke: No Hx Dementia: No Hx Asthma: No Hx of COPD: No Hx Cardiac Disorders: Yes - arrythmias Hx Congestive Heart Failure: No Hx Pacemaker: No Hx Hypertension: Yes Hx Thyroid Disease: No Hx Diabetes: No Hx Gastroesophageal Reflux: Yes Hx Renal Disease: No Hx Cancer: Yes - skin Hx of HIV: No Hx Hepatitis C: No Hx MRSA: No - Vaccination History Hx Tetanus, Diphtheria Vaccination: No Hx Influenza Vaccination: No Hx Pneumococcal Vaccination: No - Social History Hx Tobacco Use: No Hx Alcohol Use: No Hx Substance Use: No Hx Depression: No - Female History Patient : No Family Medical History - Family History Mother Family History: Unknown Living Status: Unknown Hx Family Congestive Heart Failure: Yes Hx Family Hypertension: Yes Hx Family Stroke: Yes Hx Family Diabetes: Yes Father Hx Family Congestive Heart Failure: Yes Physical Exam - Physical Exam General Appearance: Alert, No apparent distress Eye Exam: bilateral normal Ears, Nose, Throat: hearing grossly normal, normal ENT inspection, normal pharynx Neck: full range of motion, other - no nuchal rigidity or meningeal signs. 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 The patient was given a dose of oral prednisone, and muscle relaxer, Phenergan and a dose of Toradol. She does need to do stretching exercises for her neck to help reduce tension. She needs to increase her fluid intake as dehydration can make these worse. She needs to follow up with her primary care doctor in a couple of days to formulate a plan on what to do when these recur. ER warnings were given. Departure - Departure Clinical Impression: Tension type headache Qualifiers: Headache chronicity pattern: acute headache Intractability: not intractable Qualified Code(s): G44.209 - Tension-type headache, unspecified, not intractable Disposition: Discharge to Home or Self Care Condition: Fair Departure Forms: ED Discharge - Pt. Copy, Patient Portal Self Enrollment Diet: regular diet Activity: increase activity as tolerated Referrals: Tricia Moore, [employer] [Primary Care Provider] - 1-2 Days Home Medications: Ambulatory Orders Aspirin [Baby Aspirin] 81 mg PO QD 04/02/16 Atenolol [Tenormin] 50 mg PO DAILY 04/02/16 Hydrochlorothiazide 25 mg PO BID 04/02/16 Lisinopril 20 mg PO DAILY@0700 04/02/16 Nitroglycerin 0.4 mg Tab [Nitrostat] 0.4 mg SL Q 5 PRN #1 bttl 04/02/16 Potassium 99 mg PO BID 04/02/16 Calcium Carbonate-Vitamin D [Calcium + D3 600-200 mg-Unit] 1 tab PO DAILY Ciprofloxacin [Cipro] 250 mg PO Q12H #14 tablet 01/01/18 Ondansetron [Zofran Odt] 4 mg PO Q4H PRN #10 tab 01/01/18 Additional Instructions: the patient is a 62-year-old female presenting with a persistent tension headache. The patient was given a dose of oral prednisone, and muscle relaxer, Phenergan and a dose of Toradol. She does need to do stretching exercises for her neck to help reduce tension. She needs to increase her fluid intake as dehydration can make these worse. She needs to follow up with her primary care doctor in a couple of days to formulate a plan on what to do when these recur. ER warnings were given.
[2018-02-23 21:58] VITALS: BP 154/100; TEMP 97.9; O2SAT 98
== END 2018-02-23 22:15 | disposition home or self-care (01) ==
LOC: ER 21:03
DX: G44.209 Tension-type headache, unspecified, not intractable (principal); I10 Essential (primary) hypertension; K21.9 Gastro-esophageal reflux disease without esophagitis; Z85.828 Personal history of other malignant neoplasm of skin; Z79.899 Other long term (current) drug therapy; Z79.82 Long term (current) use of aspirin; Z88.5 Allergy status to narcotic agent; Z91.041 Radiographic dye allergy status; Z91.040 Latex allergy status
CPT/HCPCS: J1885; J7512; Q0169

== ENCOUNTER 2018-04-14 18:52 | Emergency (ER) | payer SELFPAY ==
[2018-04-14] MEDS ORDERED: DEXAMETHASONE INJ 4 MG/ML VIAL IV ONE (19:27)
[2018-04-14] MEDS ORDERED: PROCHLORPERAZINE INJ 10 MG/2 ML VIAL IV ONE (19:27)
[2018-04-14] MEDS ORDERED: diphenhydrAMINE HCL 50 MG/ML VIAL IV ONE (19:28)
[2018-04-14] MEDS ORDERED: SODIUM CHLORIDE 0.9% 1000ML 500 ML IVS ONE (19:29)
[2018-04-14] MEDS ORDERED: cloNIDine HCL 0.1 MG TAB PO ONE (20:38)
--- NOTE | 2018-04-14 20:39 | ED.PDOC ---
History of Present Illness - General Chief Complaint: Headache Stated Complaint: headache Time Seen by Provider: 04/14/18 19:08 Source: patient, Vital Signs reviewed Exam Limitations: no limitations - History of Present Illness Initial Comments: c/o fluctuating MILNER for 2-3 days. No fever, neck pain or trauma. Located left periorbital. Photophobia. Started with "squiggly lines" in her visual field. She has had these before & has been diagnosed with migraines - almost monthly before menopause. Timing/Duration: waxing and waning Quality: moderate, pressure, sharp Head Injury Location: other - left periorbital Recent Head Trauma: no recent headache/trauma, occasional headaches Improving Factors: nothing Worsening Factors: other - light; no visual changes/loss Allergies/Adverse Reactions: Allergies Codeine Allergy (Unknown, Verified 02/23/18 21:58) Iodine Allergy (Unknown, Verified 04/14/18 19:30) Latex Allergy (Verified 02/23/18 21:58) Shellfish Allergy Allergy (Verified 02/23/18 21:58) Home Medications: Ambulatory Orders Aspirin [Baby Aspirin] 81 mg PO QD 04/02/16 Atenolol [Tenormin] 50 mg PO DAILY 04/02/16 Hydrochlorothiazide 12.5 mg PO BID 04/02/16 Lisinopril 20 mg PO DAILY@0700 04/02/16 [id number]-Cjpwerpqkdeuh-Rfysy [Fioricet] 1 cap PO Q8HRS PRN #10 cap 04/14/18 Review of Systems - Review of Systems Constitutional: States: no symptoms reported EENTM: States: no symptoms reported Respiratory: States: no symptoms reported Gastrointestinal/Abdominal: States: nausea Musculoskeletal: States: no symptoms reported Skin: States: no symptoms reported Neurological: States: see HPI, other - had trouble expressing what she wanted to say but not slurred - has happened with previous headaches; no sensory or motor deficits Past Medical History (General) - Patient Medical History Hx Seizures: No Hx Stroke: No Hx Dementia: No Hx Asthma: No Hx of COPD: No Hx Cardiac Disorders: Yes - arrythmias Hx Congestive Heart Failure: No Hx Pacemaker: No Hx Hypertension: Yes Hx Thyroid Disease: No Hx Diabetes: No Hx Gastroesophageal Reflux: Yes Hx Renal Disease: No Hx Cancer: Yes - skin Hx of HIV: No Hx Hepatitis C: No Hx MRSA: No Hx Other - free text: Migraines Surgical History: appendectomy, cholecystectomy - Vaccination History Hx Tetanus, Diphtheria Vaccination: No Hx Influenza Vaccination: No Hx Pneumococcal Vaccination: No - Social History Hx Tobacco Use: No Hx Alcohol Use: No Hx Substance Use: No Hx Depression: No - Female History Patient : No Family Medical History - Family History Mother Family History: Unknown Living Status: Unknown Hx Family Congestive Heart Failure: Yes Hx Family Hypertension: Yes Hx Family Stroke: Yes Hx Family Diabetes: Yes Father Hx Family Congestive Heart Failure: Yes Physical Exam - Physical Exam General Appearance: Alert, No apparent distress, Other - uncomfortable Eyes, Ears, Nose, Throat Exam: PERRL/EOMI, other - pink conjunctiva; anicteric Neck: supple, normal inspection Respiratory: no respiratory distress Extremity: normal inspection 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 171/101. Ambulatory. States she is compliant with her BP meds. 04/14/18 21:18 151/73. Asymptomatic. Departure - Departure Clinical Impression: Migraine Qualifiers: Migraine type: with aura Status migrainosus presence: without status migrainosus Intractability: not intractable Qualified Code(s): G43.109 - Migraine with aura, not intractable, without status migrainosus Hypertension Qualifiers: Hypertension type: essential hypertension Qualified Code(s): I10 - Essential (primary) hypertension Time of Disposition: 21:47 Disposition: Discharge to Home or Self Care Condition: Good Departure Forms: ED Discharge - Pt. Copy, Patient Portal Self Enrollment Instructions: DI for Headache, High Blood Pressure (DC), Migraine Headache (DC) Referrals: Tricia Moore NP [Primary Care Provider] - 04/16/18 Prescriptions: Gxuvjuegoe-Llrzcpeojokeo-Hgzqq [Fioricet] 1 cap PO Q8HRS PRN #10 cap PRN Reason: Headache/Migraine Pain Home Medications: Ambulatory Orders Aspirin [Baby Aspirin] 81 mg PO QD 04/02/16 Atenolol [Tenormin] 50 mg PO DAILY 04/02/16 Hydrochlorothiazide 12.5 mg PO BID 04/02/16 Lisinopril 20 mg PO DAILY@0700 04/02/16 Mvnytitwrq-Kfmxpadbjtkqt-Jdhrg [Fioricet] 1 cap PO Q8HRS PRN #10 cap 04/14/18
[2018-04-14 22:10] VITALS: BP 141/87; TEMP 97.6; O2SAT 99
== END 2018-04-14 22:10 | disposition home or self-care (01) ==
LOC: ER 18:52
DX: G43.109 Migraine with aura, not intractable, without status migrainosus (principal); I10 Essential (primary) hypertension; K21.9 Gastro-esophageal reflux disease without esophagitis; I49.9 Cardiac arrhythmia, unspecified; Z85.828 Personal history of other malignant neoplasm of skin; Z79.899 Other long term (current) drug therapy; Z79.82 Long term (current) use of aspirin; Z88.5 Allergy status to narcotic agent; Z91.013 Allergy to seafood; Z91.040 Latex allergy status; Z91.041 Radiographic dye allergy status
CPT/HCPCS: J0780; J1100; J1200; J7030

== ENCOUNTER 2018-07-01 20:49 | Emergency (ER) | payer SELFPAY ==
[2018-07-01 21:23] VITALS: TEMP 98.3
[2018-07-01] MEDS ORDERED: predniSONE 20 MG TAB PO ONE (21:42)
[2018-07-01] MEDS ORDERED: cloNIDine HCL 0.1 MG TAB PO ONE (21:42)
[2018-07-01] MEDS ORDERED: KETOROLAC TROMETHAMINE INJ 30 MG/ML VIAL IM ONE (21:42)
[2018-07-01] MEDS ORDERED: diazePAM 5 MG TAB PO ONE (21:42)
--- NOTE | 2018-07-01 22:03 | ED.PDOC ---
History of Present Illness - General Chief Complaint: Blood Pressure Problem Stated Complaint: high B/P, headache, N/V Time Seen by Provider: 07/01/18 21:02 Source: patient Exam Limitations: no limitations - History of Present Illness Initial Comments: the patient is 62-year-old female presenting to emergency room secondary to a recurrent headache that does again seem more tension-type than otherwise. Pain is circumferential. It started yesterday. Blood pressure does go up with the headaches. She has taken an extra atenolol today without much relief. She did see her primary care doctor earlier today. No neurological changes otherwise. No nuchal rigidity. She does have mild tenderness to palpation at the atlantooccipital junction and surrounding her scalp. No fever. She has had a head CT within the last year. Timing/Duration: 24 hours Severity: moderate Improving Factors: nothing Worsening Factors: nothing Associated Symptoms: headaches Allergies/Adverse Reactions: Allergies Codeine Allergy (Unknown, Verified 07/01/18 21:23) Iodine Allergy (Unknown, Verified 07/01/18 21:23) Latex Allergy (Verified 07/01/18 21:23) Shellfish Allergy Allergy (Verified 07/01/18 21:23) Home Medications: Ambulatory Orders Aspirin [Baby Aspirin] 81 mg PO QD 04/02/16 Atenolol [Tenormin] 50 mg PO DAILY 04/02/16 Hydrochlorothiazide 12.5 mg PO BID 04/02/16 Lisinopril 20 mg PO DAILY@0700 04/02/16 Wlkdbsgryr-Iboqsqomvuidf-Bigcw [Fioricet] 1 cap PO Q8HRS PRN #10 cap 04/14/18 Review of Systems - Review of Systems Constitutional: States: no symptoms reported EENTM: States: no symptoms reported Respiratory: States: no symptoms reported Cardiology: States: no symptoms reported Gastrointestinal/Abdominal: States: no symptoms reported Genitourinary: States: no symptoms reported Musculoskeletal: States: no symptoms reported Skin: States: no symptoms reported Neurological: States: headache Endocrine: States: no symptoms reported All other Systems: No Change from Baseline Past Medical History (General) - Patient Medical History Hx Seizures: No Hx Stroke: No Hx Dementia: No Hx Asthma: No Hx of COPD: No Hx Cardiac Disorders: Yes - arrythmias Hx Congestive Heart Failure: No Hx Pacemaker: No Hx Hypertension: Yes Hx Thyroid Disease: No Hx Diabetes: No Hx Gastroesophageal Reflux: Yes Hx Renal Disease: No Hx Cancer: Yes - skin Hx of HIV: No Hx Hepatitis C: No Hx MRSA: No Surgical History: cholecystectomy - Vaccination History Hx Tetanus, Diphtheria Vaccination: No Hx Influenza Vaccination: No Hx Pneumococcal Vaccination: No - Social History Hx Tobacco Use: No Hx Alcohol Use: No Hx Substance Use: No Hx Depression: No - Female History Patient : No Family Medical History - Family History Mother Family History: Unknown Living Status: Unknown Hx Family Congestive Heart Failure: Yes Hx Family Hypertension: Yes Hx Family Stroke: Yes Hx Family Diabetes: Yes Father Hx Family Congestive Heart Failure: Yes Physical Exam - Physical Exam General Appearance: Alert, Comfortable, No apparent distress Eye Exam: bilateral normal Ears, Nose, Throat: hearing grossly normal, normal ENT inspection, normal pharynx Neck: full range of motion, other - see history of present illness Respiratory: lungs clear, normal breath sounds, no respiratory distress, no accessory muscle use Cardiovascular/Chest: normal peripheral pulses, regular rate, rhythm, no edema Peripheral Pulses: radial,right: 2+, radial,left: 2+, dorsalis pedis,right: 2+, dorsalis pedis,left: 2+ Gastrointestinal/Abdominal: non tender, soft Rectal Exam: deferred Back Exam: no CVA tenderness, no vertebral tenderness Extremity: non-tender, normal inspection, no pedal edema, normal capillary refill 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 This appears to be tension headache in nature. When the patient gets these her blood pressure does climb. She has not responded to blood pressure medications as far as relieving the headache. The patient is being treated with a muscle relaxer, steroid, and anti-inflammatory and a dose of clonidine here. She will be allowed to go home to hopefully sleep this off. She does need to record her blood pressures twice daily when she is relaxed. It may be that her blood pressures are gradually climbing and making the process worse. There is certainly room to increase her atenolol if needed, and other medications may be required if this is the case as well. She needs to keep herself well hydrated to prevent recurrence of any dehydration headaches. Follow back up with primary care doctor. ER warnings were given.Systolic blood pressures have dropped down into the 160s prior to discharge. 07/01/18 22:14 Departure - Departure Clinical Impression: Tension headache, chronic Qualifiers: Intractability: not intractable Qualified Code(s): G44.229 - Chronic tension- type headache, not intractable Disposition: Discharge to Home or Self Care Condition: Fair Departure Forms: ED Discharge - Pt. Copy, Patient Portal Self Enrollment Instructions: Tension Headache (DC) Diet: regular diet Activity: increase activity as tolerated Referrals: Tricia Moore NP [Primary Care Provider] - 1-2 Weeks Home Medications: Ambulatory Orders Aspirin [Baby Aspirin] 81 mg PO QD 04/02/16 Atenolol [Tenormin] 50 mg PO DAILY 04/02/16 Hydrochlorothiazide 12.5 mg PO BID 04/02/16 Lisinopril 20 mg PO DAILY@0700 04/02/16 Fdzrdghusr-Emteijonhockd-Dnmck [Fioricet] 1 cap PO Q8HRS PRN #10 cap 04/14/18 Additional Instructions: the patient is a 62-year-old female presenting to the emergency room secondary to recurrent headache. This appears to be tension headache in nature. When the patient gets these her blood pressure does climb. She has not responded to blood pressure medications as far as relieving the headache. The patient is being treated with a muscle relaxer, steroid, and anti-inflammatory and a dose of clonidine here. She will be allowed to go home to hopefully sleep this off. She does need to record her blood pressures twice daily when she is relaxed. It may be that her blood pressures are gradually climbing and making the process worse. There is certainly room to increase her atenolol if needed, and other medications may be required if this is the case as well. She needs to keep herself well hydrated to prevent recurrence of any dehydration headaches. Follow back up with primary care doctor. ER warnings were given.
[2018-07-01 22:26] VITALS: BP 175/98; O2SAT 97
== END 2018-07-01 22:30 | disposition home or self-care (01) ==
LOC: ER 20:49
DX: G44.229 Chronic tension-type headache, not intractable (principal); R11.2 Nausea with vomiting, unspecified; I10 Essential (primary) hypertension; K21.9 Gastro-esophageal reflux disease without esophagitis; Z85.828 Personal history of other malignant neoplasm of skin; Z79.82 Long term (current) use of aspirin; Z79.899 Other long term (current) drug therapy; Z91.040 Latex allergy status; Z88.5 Allergy status to narcotic agent; Z91.041 Radiographic dye allergy status; Z91.013 Allergy to seafood
CPT/HCPCS: J1885; J7512

== ENCOUNTER 2018-07-06 12:07 | Emergency (ER) | payer SELFPAY ==
[2018-07-06] MEDS ORDERED: PROMETHAZINE HCL INJ 25 MG in SODIUM CHLORIDE 0.9% 50ML 50 ML IVPB ONE (12:42)
[2018-07-06] MEDS ORDERED: fentaNYL CITRATE INJ 50 MCG/ML AMP IV ONE (12:44)
[2018-07-06] MEDS ORDERED: PROMETHAZINE HCL INJ 25 MG/ML VIAL ONE (13:06)
[2018-07-06] MEDS ORDERED: SODIUM CHLORIDE 0.9% 50ML 50 ML ONE (13:07)
[2018-07-06 13:15] VITALS: O2SAT 97
--- NOTE | 2018-07-06 13:18 | CT ---
EXAM DESCRIPTION: Head CLINICAL HISTORY: headache, htn COMPARISON: CT head dated 01/01/2018. TECHNIQUE: Contiguous axial images through the head were obtained without intravenous contrast administration. Sagittal and coronal reconstructions were reviewed. FINDINGS: Mild periventricular white matter ischemia is noted. No evidence of acute major vascular territorial infarct or intraparenchymal hemorrhage. No intra-axial or extra-axial fluid collections are identified. The ventricles and cisterns appear normal in caliber. The sella and suprasellar regions appear normal. The structures of the posterior fossa are intact. The globes are intact bilaterally. The visualized paranasal sinuses and mastoid air cells are well-aerated. Review of the bones demonstrates no gross instability. IMPRESSION: No CT evidence of acute intracranial process. This exam was performed according to our departmental dose-optimization program, which includes automated exposure control, adjustment of the mA and/or kV according to patient size and/or use of iterative reconstruction technique. Electronically signed by: Florinda Holt MD 07/06/2018 1:14 PM CDT
[2018-07-06] MEDS ORDERED: KETOROLAC TROMETHAMINE INJ 30 MG/ML VIAL IV ONE (14:07)
[2018-07-06] MEDS ORDERED: SODIUM CHLORIDE 0.9% 1000ML 1,000 ML IVS ONE (14:07)
[2018-07-06] MEDS ORDERED: cloNIDine HCL 0.1 MG TAB PO ONE (14:16)
[2018-07-06 14:21] VITALS: TEMP 97.9
--- NOTE | 2018-07-06 15:23 | ED.PDOC ---
History of Present Illness - General Chief Complaint: Headache Stated Complaint: headaches, migraines Time Seen by Provider: 07/06/18 12:42 Source: patient Exam Limitations: no limitations - History of Present Illness Initial Comments: PT PRESENTS FROM THE CLINIC WITH COMPLAINTS OF HYPERTENSION AND HEADACHE X 1 WEEK. PT REPORTS HISTORY OF MIGRAINES AND STATES THAT TODAYS HEADACHE IS SIMILAR TO MIGRAINE HEADACHES IN THE PAST. IT IS ASSOCIATED WITH NAUSEA, VOMITING, AND PHOTOPHOBIA. PTS BP WAS FOUND TO BE 200/100 IN THE CLINIC. Timing/Duration: 1 week Quality: severe, constant Head Injury Location: frontal Recent Head Trauma: chronic headaches Improving Factors: rest Worsening Factors: other - LIGHT Associated Symptoms: nausea/vomiting Allergies/Adverse Reactions: Allergies Codeine Allergy (Unknown, Verified 07/06/18 12:45) Iodine Allergy (Unknown, Verified 07/06/18 12:45) Latex Allergy (Verified 07/06/18 12:45) Shellfish Allergy Allergy (Verified 07/06/18 12:45) Home Medications: Ambulatory Orders Aspirin [Baby Aspirin] 81 mg PO QD 04/02/16 Atenolol [Tenormin] 50 mg PO DAILY 04/02/16 Hydrochlorothiazide 12.5 mg PO DAILY 04/02/16 Lisinopril 20 mg PO DAILY@0700 04/02/16 Calcium Carbonate-Cholecalcife [Calcium 500 +D3 500-600 mg-Unit] 2 tab PO BID 07/01/18 Ethistle 2 tablet PO DAILY 07/01/18 Magnesium [Chelated Magnesium] 100 mg PO BID 07/01/18 Potassium 99 mg PO BID 07/01/18 Tfcisxmsxpsik-Yorl-Crokqhwwbs [Fioricet] 1 - 2 ea PO Q6HR PRN #20 tab 07/06/18 Clonidine HCl 0.1 mg PO BID PRN #30 tab 07/06/18 Promethazine Tab [Phenergan Tablet] 25 mg PO Q6H PRN #15 tab 07/06/18 Review of Systems - Review of Systems Constitutional: Denies: chills, fever EENTM: Denies: blurred vision, nose congestion Respiratory: Denies: cough, short of breath Cardiology: Denies: chest pain, palpitations Gastrointestinal/Abdominal: States: nausea, vomiting Genitourinary: Denies: dysuria, frequency Musculoskeletal: Denies: joint pain, joint swelling Skin: Denies: change in color, dryness Neurological: States: see HPI, headache Endocrine: States: no symptoms reported Hematologic/Lymphatic: States: no symptoms reported Past Medical History (General) - Patient Medical History Hx Seizures: No Hx Stroke: No Hx Dementia: No Hx Asthma: No Hx of COPD: No Hx Cardiac Disorders: Yes - arrythmias, valve leakage Hx Congestive Heart Failure: No Hx Pacemaker: No Hx Hypertension: Yes Hx Thyroid Disease: No Hx Diabetes: No Hx Gastroesophageal Reflux: Yes Hx Renal Disease: No Hx Cancer: Yes - skin Hx of HIV: No Hx Hepatitis C: No Hx MRSA: No Surgical History: appendectomy, cholecystectomy - Vaccination History Hx Tetanus, Diphtheria Vaccination: No Hx Influenza Vaccination: No Hx Pneumococcal Vaccination: No - Social History Hx Tobacco Use: No Hx Alcohol Use: No Hx Substance Use: No Hx Depression: No - Female History Patient : No Family Medical History - Family History Mother Family History: Unknown Living Status: Unknown Hx Family Congestive Heart Failure: Yes Hx Family Hypertension: Yes Hx Family Stroke: Yes Hx Family Diabetes: Yes Father Hx Family Congestive Heart Failure: Yes Physical Exam - Physical Exam General Appearance: Alert, Obvious distress, Well Developed, Well Groomed, Well Hydrated Eyes, Ears, Nose, Throat Exam: pharynx normal Neck: non-tender, full range of motion, supple Cardiovascular/Chest: regular rate, rhythm Respiratory: normal breath sounds, no respiratory distress Gastrointestinal/Abdominal: non tender, soft Extremity: no pedal edema 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 LABS AND CT FINDINGS DISCUSSED. BP IMPROVED NOW 185/103. WILL ADMINISTER PO CLONIDINE FOR FURTHER BP REDUCTION. 07/06/18 15:47 BP NOW 163/80 AFTER PO CLONIDINE. WILL PRESCRIBE FOR USE ON AN NEEDED BASIS - Results/Orders Results/Orders: Laboratory Tests 07/06/18 07/06/18 13:05 13:05 WBC 6.2 RBC 4.97 Hgb 15.0 Hct 44.8 MCV 90.2 MCH 30.1 MCHC 33.4 RDW 14.8 H Plt Count 194 MPV 8.4 Absolute Neuts (auto) 4.50 Absolute Lymphs (auto) 1.10 Absolute Monos (auto) 0.30 Absolute Eos (auto) 0.20 Absolute Basos (auto) 0.00 Neutrophils % 73.2 Lymphocytes % 18.3 L Monocytes % 5.3 Eosinophils % 2.7 Basophils % 0.5 Sodium 138 Potassium 3.8 Chloride 105 Carbon Dioxide 24 Anion Gap 12.8 BUN 16 Creatinine 0.64 BUN/Creatinine Ratio 25.0 H Random Glucose 133 H Serum Osmolality 278.8 Calcium 9.7 Total Bilirubin 0.6 AST 18 ALT 18 Alkaline Phosphatase 43 Serum Total Protein 7.4 Albumin 4.0 Globulin 3.4 Albumin/Globulin Ratio 1.2 - EKG/XRAY/CT CT: HEAD CT Ordered: Yes - NO ACUTE FINDINGS PER RAD CT Interpretation Call Back: No Departure - Departure Clinical Impression: Uncontrolled hypertension, Migraine, Nausea & vomiting Disposition: Discharge to Home or Self Care Condition: Good Departure Forms: ED Discharge - Pt. Copy, Patient Portal Self Enrollment Instructions: DI for Headache, High Blood Pressure (DC) Diet: low salt diet Referrals: Ayo Ricketts MD [Primary Care Provider] - 1-5 Days Prescriptions: Grjtnbdjvqvfv-Avai-Jsngrpyalp [Fioricet] 1 - 2 ea PO Q6HR PRN #20 tab PRN Reason: Headache/Migraine Pain Clonidine HCl 0.1 mg PO BID PRN #30 tab PRN Reason: Systolic Bp Greater Than 160 Promethazine Tab [Phenergan Tablet] 25 mg PO Q6H PRN #15 tab PRN Reason: Nausea/Vomiting Home Medications: Ambulatory Orders Aspirin [Baby Aspirin] 81 mg PO QD 04/02/16 Atenolol [Tenormin] 50 mg PO DAILY 04/02/16 Hydrochlorothiazide 12.5 mg PO DAILY 04/02/16 Lisinopril 20 mg PO DAILY@0700 04/02/16 Calcium Carbonate-Cholecalcife [Calcium 500 +D3 500-600 mg-Unit] 2 tab PO BID 07/01/18 Ethistle 2 tablet PO DAILY 07/01/18 Magnesium [Chelated Magnesium] 100 mg PO BID 07/01/18 Potassium 99 mg PO BID 07/01/18 Rpdjvsknuvjjq-Cltv-Rbqtqcxtjk [Fioricet] 1 - 2 ea PO Q6HR PRN #20 tab 07/06/18 Clonidine HCl 0.1 mg PO BID PRN #30 tab 07/06/18 Promethazine Tab [Phenergan Tablet] 25 mg PO Q6H PRN #15 tab 07/06/18
[2018-07-06 15:51] VITALS: BP 153/76
== END 2018-07-06 15:52 | disposition home or self-care (01) ==
LOC: ER 12:07
DX: I10 Essential (primary) hypertension (principal); G43.909 Migraine, unspecified, not intractable, without status migrainosus; K21.9 Gastro-esophageal reflux disease without esophagitis; Z85.828 Personal history of other malignant neoplasm of skin; Z79.82 Long term (current) use of aspirin; Z79.899 Other long term (current) drug therapy; Z88.5 Allergy status to narcotic agent; Z91.041 Radiographic dye allergy status; Z91.040 Latex allergy status; Z91.013 Allergy to seafood
CPT/HCPCS: 70450; 80053; 81001; 85025; 94760; A4216; J1885; J2550; J3010; J7030

== ENCOUNTER → 2018-08-31 | Outpatient (CLI) | payer SELFPAY ==
--- NOTE | 2018-09-01 12:04 | RAD ---
Study: 3 Views of the Right Foot. Indication: FOOT PAIN Comparison: None. Impression: No acute fracture or malalignment. 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 Mild plantar heel spurring. Soft tissue swelling of the forefoot. Electronically signed by: Dash Simon MD 09/01/2018 12:01 PM CDT
== END ==
LOC: YCFC.O 15:59
PROVIDERS: ATTEND Nurse Practitioner Family
DX: M79.671 Pain in right foot (principal)

== ENCOUNTER → 2019-01-05 | Outpatient (CLI) | payer OTHER ==
--- NOTE | 2019-01-08 16:57 | MAM ---
EXAM DESCRIPTION: 3D Screening BILATERAL : Digital Mammography. CLINICAL HISTORY: 63 years Female ANNUAL SCREENING . No complaints. No personal or family history of breast cancer. Childbirth. Postmenopausal 15+ years. No current HRT. Lifetime risk of developing breast cancer (Tyrer-Cuzick model)(%): 7.5. COMPARISON: 2-D digital screening bilateral mammography 06/28/2014. No prior reports available. TECHNIQUE: Bilateral CC and MLO projection full-field images, digital tomosynthesis mammographic technique. Bilateral digital 2-D full-field MLO images. CAD not available for tomosynthesis or 2-D images. FINDINGS: The breast parenchymal density pattern is: Scattered areas of fibroglandular density. No skin thickening or nipple retraction. Bilateral solitary microcalcifications more left than right. Intramammary left lymph node.. No new focal, stellate mass or density, focal asymmetry , and no suspicious microcalcifications bilaterally. increased fatty tissue and decreased left axillary lymph nodes since the prior study. IMPRESSION: Benign exam. BIRAD CATEGORY: 2 BENIGN FINDINGS. RECOMMENDATIONS: FOLLOW UP: Routine digital bilateral mammographic screening, one year interval from December 2018. Written communication explaining the IMPRESSION and follow-up, will be mailed to the patient and referring health care provider. According to the [employer], yearly mammograms are recommended starting at age 40 and continuing as long as a woman is in good health. Any breast change noted on a breast self-exam should be reported promptly to the patient's healthcare provider. Breast MRI is recommended for women with an approximately 20-25% or greater lifetime risk of breast cancer, including women with a strong family history of breast or ovarian cancer and women who have been treated for Hodgkin's disease. A negative mammographic report should not delay tissue diagnosis in patients with significant clinical history or physical findings. Extremely dense breast tissue limits the sensitivity of digital mammography. Electronically signed by: Shankar Falk MD 01/08/2019 4:56 PM CDT
== END ==
LOC: MAMMO 13:07
PROVIDERS: ATTEND Family Medicine
DX: Z12.31 Encounter for screening mammogram for malignant neoplasm of breast (principal)

== ENCOUNTER 2019-02-27 12:11 | Emergency (ER) | payer OTHER, SELFPAY ==
--- NOTE | 2019-02-27 12:52 | ED.PDOC ---
History of Present Illness - General Chief Complaint: Lower Extremity Injury Stated Complaint: left hip pain Time Seen by Provider: 02/27/19 12:17 Source: patient - History of Present Illness Initial Comments: 63 yo female who presents with cc of left hip & groin pain following fall 7 days ago at home. Reports she was helping her family move and she tripped on the curb of the sidewalk and fell landing on the left lateral hip region. Believes she felt a crack in the left hip region when she fell. Reports significant pain since then to left hip and left groin region, no pain at rest but 10/10 severity pain with weight bearing on LLE and at extremes of ROM of left hip, pain primarily to deep inner aspect of left groin but radiates to left lateral hip and sometimes into abdomen, tried some Tramadol at home with little relief. States unable to take ibuprofen and Tylenol due to hx of fatty liver disease and is allergic to codeine. Denies weakness, numbness, bruising, swelling, deformity. Has not been able to walk since the injury due to pain. PCP is Dr. Ricketts. Allergies/Adverse Reactions: Allergies Codeine Allergy (Unknown, Verified 07/06/18 12:45) Iodine Allergy (Unknown, Verified 07/06/18 12:45) Latex Allergy (Verified 07/06/18 12:45) Shellfish Allergy Allergy (Verified 07/06/18 12:45) Home Medications: Ambulatory Orders Aspirin [Baby Aspirin] 81 mg PO QD 04/02/16 Atenolol [Tenormin] 50 mg PO DAILY 04/02/16 Hydrochlorothiazide 12.5 mg PO DAILY 04/02/16 Lisinopril 20 mg PO DAILY@0700 04/02/16 Calcium Carbonate-Cholecalcife [Calcium 500 +D3 500-600 mg-Unit] 3 tab PO DAILY 07/01/18 Magnesium [Chelated Magnesium] 400 mg PO DAILY 07/01/18 Potassium 99 mg PO BID 07/01/18 Clonidine HCl 0.1 mg PO BID PRN #30 tab 07/06/18 Tramadol HCl 50 mg PO Q6H PRN 14 Days #20 tab 02/27/19 Review of Systems - Review of Systems Review of Systems: 02/27/19 12:52 as per HPI All other Systems: Reviewed and Negative Past Medical History (General) - Patient Medical History Hx Seizures: No Hx Stroke: No Hx Dementia: No Hx Asthma: No Hx of COPD: No Hx Cardiac Disorders: Yes - arrythmias, valve leakage Hx Congestive Heart Failure: No Hx Pacemaker: No Hx Hypertension: Yes Hx Thyroid Disease: No Hx Diabetes: No Hx Gastroesophageal Reflux: Yes Hx Renal Disease: No Hx Cancer: Yes - skin Hx of HIV: No Hx Hepatitis C: No Hx MRSA: No Surgical History: noncontributory, appendectomy, cholecystectomy - Vaccination History Hx Tetanus, Diphtheria Vaccination: No Hx Influenza Vaccination: No Hx Pneumococcal Vaccination: Yes - Social History Hx Tobacco Use: Yes Hx Alcohol Use: No Hx Substance Use: No Hx Depression: No - Female History Patient : No Family Medical History - Family History Mother Family History: Unknown Living Status: Unknown Hx Family Congestive Heart Failure: Yes Hx Family Hypertension: Yes Hx Family Stroke: Yes Hx Family Diabetes: Yes Father Hx Family Congestive Heart Failure: Yes Physical Exam - Physical Exam General Appearance: Alert, No apparent distress Eyes, Ears, Nose, Throat: PERRL/EOMI, normal ENT inspection, pharynx normal Neck: non-tender, full range of motion, supple, normal inspection Cardiovascular/Respiratory: regular rate, rhythm, no M/R/G, normal peripheral pulses, no respiratory distress Gastrointestinal/Abdominal: non-tender, no organomegaly Back: normal inspection, no CVA tenderness, no vertebral tenderness Thigh/Hip: normal inspection, non-tender, no evidence of injury, other - left LLE appears normal without bruising/swelling/deformity. Reports marked pain to medial groin region with extremes of ROM doreen abd & adduction Leg: normal inspection, non-tender, no evidence of injury Knee: non-tender, normal ROM Ankle: normal inspection, normal ROM Foot: normal inspection Neuro/Tendon: normal sensation, normal motor functions Mental Status: alert, oriented x 3 Skin: normal color, warm/dry Progress - Progress Progress: 02/27/19 12:54 Left pelvic pain -concern for possible pelvic ring frx vs left hip/femur fracture vs contusion vs sprain vs other -obtain XR Pelvis, labs -pain well-controlled now at rest 02/27/19 15:40 -XR pelvis revealed no evidence of acute fractures or processes. Given concern for occult frx of the pelvis or hip, I ordered a CT pelvis wo and it revealed mild buckling of the left inferior pubic rami concerning for nondisplaced acute fracture. Her labs are unremarkable. -Discussed with pt the diagnosis of nondisplaced pubic rami fracture on the left. As this is a stable pelvic fracture, she may bear weight and ambulate as she is able to tolerate the pain. She will need to f/u closely with her PCP for further care and for PT referral - I advised she call on Friday morning to arrange an appointment. Will give Rx of Tramadol PRN as she needs a refill. Advised ibuprofen for baseline pain/inflammation control. Kevin Santana MD Billing #[id number] - EKG/XRAY/CT XRAY: pelvis CT Ordered: Yes - Pelvis Departure - Departure Clinical Impression: Inferior pubic ramus fracture Qualifiers: Encounter type: initial encounter Fracture type: closed Laterality: left Qualified Code(s): S32.592A - Other specified fracture of left pubis, initial encounter for closed fracture Time of Disposition: 15:44 Disposition: Discharge to Home or Self Care Condition: Fair Departure Forms: ED Discharge - Pt. Copy, Patient Portal Self Enrollment Instructions: Pelvic Fracture (DC) Activity: increase activity as tolerated Referrals: Ayo Ricketts MD [Primary Care Provider] - 1-2 Weeks Prescriptions: Tramadol HCl 50 mg PO Q6H PRN 14 Days #20 tab PRN Reason: Pain Home Medications: Ambulatory Orders Aspirin [Baby Aspirin] 81 mg PO QD 04/02/16 Atenolol [Tenormin] 50 mg PO DAILY 04/02/16 Hydrochlorothiazide 12.5 mg PO DAILY 04/02/16 Lisinopril 20 mg PO DAILY@0700 04/02/16 Calcium Carbonate-Cholecalcife [Calcium 500 +D3 500-600 mg-Unit] 3 tab PO DAILY 07/01/18 Magnesium [Chelated Magnesium] 400 mg PO DAILY 07/01/18 Potassium 99 mg PO BID 07/01/18 Clonidine HCl 0.1 mg PO BID PRN #30 tab 07/06/18 Tramadol HCl 50 mg PO Q6H PRN 14 Days #20 tab 02/27/19 Additional Instructions: Ok to bear weight and ambulate as you are able to tolerate the pain. Continue ibuprofen 600-800 mg every 6-8 hours and Tramadol as directed for breakthrough pain. Do not drive or operate heavy machinery while taking this medication. Follow up with your primary care doctor in the next 3-5 days is recommended.
--- NOTE | 2019-02-27 13:51 | RAD ---
EXAM DESCRIPTION: Pelvis,2 or More Views CLINICAL HISTORY: 63 years Female, fall 1 week ago, left groin hip pain COMPARISON: None. FINDINGS: AP and frog-leg views of the pelvis were obtained. No acute fracture or malalignment. Hip joint spaces are well-maintained. Postoperative changes in the lumbar spine at L4-5. The pubic symphysis and sacroiliac joints are unremarkable. Surgical clips in the right lower quadrant. IMPRESSION: Postoperative changes in the lumbar spine, otherwise unremarkable exam. Electronically signed by: Flash Marcos MD 02/27/2019 1:49 PM CDT
--- NOTE | 2019-02-27 15:15 | CT ---
EXAM DESCRIPTION: Pelvis CLINICAL HISTORY: fall 1 week ago, acute left hip pelvic pain COMPARISON: CT abdomen and pelvis 05/04/2016. Pelvic radiograph same day TECHNIQUE: CT of the pelvis was obtained without intravenous contrast. MPRs are created and reviewed as well. FINDINGS: BONE AND JOINTS: Mild cortical buckling noted about the left inferior pubic ramus (for example series 5 image 22) concerning for nondisplaced fracture. No other pelvic fractures identified. No sacroiliac joint and symphysis pubis diastases. The bilateral hip joints are intact without displaced fracture or dislocation. Chronic left posterior iliac bone changes. Degenerative subcortical cystic changes about the bilateral acetabulum. Partially visualized lower lumbar spine posterior hardware fixation without hardware fracture or displacement. SOFT TISSUES: No pelvic sidewall hematoma. No free fluid within the pelvis. Moderate sigmoid colonic diverticulosis without diverticulitis. IMPRESSION: 1. Left inferior pubic ramus nondisplaced fracture. This exam was performed according to our departmental dose-optimization program, which includes automated exposure control, adjustment of the mA and/or kV according to patient size and/or use of iterative reconstruction technique. Electronically signed by: Pk Hoffman DO 02/27/2019 3:13 PM CDT
[2019-02-27 16:01] VITALS: BP 120/70; TEMP 96.5; O2SAT 98
== END 2019-02-27 16:00 | disposition home or self-care (01) ==
LOC: ER 12:11
DX: S32.592A Other specified fracture of left pubis, initial encounter for closed fracture (principal); K76.0 Fatty (change of) liver, not elsewhere classified; I49.9 Cardiac arrhythmia, unspecified; I10 Essential (primary) hypertension; K21.9 Gastro-esophageal reflux disease without esophagitis; Z85.828 Personal history of other malignant neoplasm of skin; Z79.899 Other long term (current) drug therapy; Z79.82 Long term (current) use of aspirin; W10.1XXA Fall (on)(from) sidewalk curb, initial encounter; Y92.480 Sidewalk as the place of occurrence of the external cause

== ENCOUNTER → 2019-04-16 | Outpatient (CLI) | payer SELFPAY ==
--- NOTE | 2019-04-17 15:37 | US ---
US THYROID CLINICAL STATEMENT: NONTOXIC SINGLE THYROID NODULE. No prior thyroid surgery, therapy, cancer. No palpable mass. COMPARISON: None TECHNIQUE: Transcutaneous scanning, grayscale and Doppler modes. FINDINGS: Size right thyroid lobe: 5.0 x 2.1 x 1.3 cm Size left thyroid lobe: 4.5 x 2.1 x 1.7 cm Size isthmus: 0.33 cm Estimated total number of nodules greater than or equal to 1 cm: 1. Heterogeneous gland. No distinct cyst or large calcifications. Nodule 1: Size: 2.5 x 2.0 x 1.1 cm Location: Left Mid Composition: solid or almost completely solid: 2 points Echogenicity: hypoechoic: 2 points Shape: wider than tall: 0 points Margins: smooth: 0 points Echogenic foci: large comet tail artefact: 0 points ACR Total Points: 4; ACR TI-RADS risk category: TR4 - moderately suspicious nodule. Nodule 2: Size: 0.9 x 0.8 x 0.4 cm Location: Right Upper Composition: solid or almost completely solid: 2 points Echogenicity: hypoechoic: 2 points Shape: wider than tall: 0 points Margins: smooth: 0 points Echogenic foci: none: 0 points ACR Total Points: 4; ACR TI-RADS risk category: TR4 - moderately suspicious nodule. Nodule 3: Size: 0.7 x 0.5 x 0.4 cm Location: Right Lower Composition: spongiform: 0 points Echogenicity: hypoechoic: 2 points Shape: wider than tall: 0 points Margins: smooth: 0 points Echogenic foci: none: 0 points ACR Total Points: 2; ACR TI-RADS risk category: TR2 - nonsuspicious nodule. Soft tissue around the thyroid gland shows no dominant solid mass or distinct cyst. IMPRESSION: 1. Nodule 1: ACR TI-RADS 2017 Category TR4. Recommend: Ultrasound-guided fine needle aspiration. Recommendations based upon [employer] Best [employer] recommendations and ACR TI-RADS 2017 guidelines. Please see below*. 2. Nodule 2: ACR TI-RADS 2017 Category TR4. Recommend: No further follow-up. 3. Nodule 3: ACR TI-RADS 2017 Category TR2. Recommend: No further follow-up. 4. Soft tissue around the thyroid gland is unremarkable. *ACR TI-RADS 2017 Recommendations for imaging follow-up of nodules: TR1: No FNA or follow up TR2: No FNA or follow up TR3: FNA if >/= 2.5 cm, follow up if 1.5 - 2.4 cm in 1, 3, and 5 years TR4: FNA if >/= 1.5 cm, follow up if 1.0 - 1.4 cm in 1, 2, 3, and 5 years TR5: FNA if >/= 1.0 cm, follow up if 0.5 - 0.9 cm every year for 5 years ACR TI-RADS recommends that no more than two nodules with the highest ACR TI-RADS total point should be biopsied and no more than four nodules should be followed. These recommendations do not apply to patients with increased risk for thyroid cancer or patients with symptomatic thyroid disease. Electronically signed by: Shankar Falk MD 04/17/2019 3:35 PM [facility]
== END ==
LOC: US 11:15
PROVIDERS: ATTEND Family Medicine
DX: E04.2 Nontoxic multinodular goiter (principal)

== ENCOUNTER → 2019-05-11 | Outpatient (CLI) | payer SELFPAY ==
--- NOTE | 2019-05-12 10:40 | US ---
Thyroid Biopsy, Image-Guided: Biopsy of Thyroid: Ultrasound CLINICAL INFORMATION: 63 years Female. Left thyroid mostly solid nodule with cystic component. TECHNIQUE: Procedure was explained to the patient with risks and benefits. The patient gave verbal and written consent. Sterile preparation draping. 1% xylocaine dermal anesthetic 9-1 mixture with sodium bicarbonate. Sterile ultrasound guidance. A total of 6 passes into left thyroid nodule, mid lobe; 3 needle samplings with a separate 1.5 inch, 25-gauge needle per sample, and 3 aspirations, with a separate 1.5 inch, 25-gauge needle/10-cc syringe set, per aspiration. Each sample was placed on a separate slide and fixed in 95% alcohol container. Saccomanno fluid drawn into aspirate needle and rinse injected into Saccomanno container. Specimens to be sent for pathologic examination at remote facility. . Patient tolerated procedure well. Biopsy #: 1 Nodule reference number based on prior diagnostic ultrasound:1 Maximum size: 2.5 cm Location: left; mid ACR TI-RADS risk category: TR4 (4-6 points) Reason for biopsy: meets ACR TI-RADS criteria Complications: Subcutaneous swelling over the needle entry site. No hemorrhage or cyst. Minimal edema. FINDINGS: Multiple images demonstrate the echogenic needle within the mass/nodule during sampling and aspirations. IMPRESSION: Successful ultrasound guided fine needle aspiration of left thyroid nodule. ACR TI-RADS Risk Category TR 4 Electronically signed by: Shankar Falk MD 05/12/2019 10:38 AM CARDIOLOGY TECH
== END ==
LOC: US 10:00
PROVIDERS: ATTEND Family Medicine
DX: E04.1 Nontoxic single thyroid nodule (principal)

== ENCOUNTER → 2019-05-27 | Outpatient (CLI) | payer SELFPAY ==
--- NOTE | 2019-05-27 13:34 | US ---
Thyroid Biopsy, Image-Guided: Biopsy of Thyroid: Ultrasound CLINICAL INFORMATION: 63 years Female. [place] category 1, insufficient cells, on previous thyroid biopsy, May 11. TECHNIQUE: Procedure performed by Dr. Falk; explained to the patient with risks and benefits. The patient gave verbal and written consent. Sterile preparation draping. 1% xylocaine dermal anesthetic 9-1 mixture with sodium bicarbonate. Sterile ultrasound guidance. A total of 6 passes left thyroid nodule; 3 needle samplings with a separate 1.5 inch, 25-gauge needle per sample, and 3 aspirations, with a separate 1.5 inch, 25-gauge needle/10-cc syringe set, per aspiration. Each sample was placed on a separate slide and fixed in 95% alcohol container. Saccomanno fluid drawn into aspirate needle and rinse injected into Saccomanno container. Specimens to be sent for pathologic examination at remote facility. . Patient tolerated procedure well. Biopsy #: 1 Nodule reference number based on prior diagnostic ultrasound:1 Maximum size: 2.5 cm Location: left; mid ACR TI-RADS risk category: TR4 (4-6 points) Reason for biopsy: nondiagnostic on prior biopsy Complications: None FINDINGS: Multiple images demonstrate the echogenic needle within the nodule/mass during sampling and aspirations. IMPRESSION: Successful ultrasound guided fine needle aspiration of left thyroid nodule. ACR TI-RADS Risk Category TR 4 Electronically signed by: Shankar Falk MD 05/27/2019 1:33 PM [facility]
== END ==
LOC: US 10:00
PROVIDERS: ATTEND Family Medicine
DX: E04.1 Nontoxic single thyroid nodule (principal)

== ENCOUNTER → 2019-09-02 | Outpatient (CLI) | payer MEDICARE ==
--- NOTE | 2019-09-02 10:49 | RAD ---
EXAM DESCRIPTION: Chest,2 Views CLINICAL HISTORY: DYSPNEA COMPARISON: Previous chest x-ray June 30, 2019 TECHNIQUE: PA/lateral FINDINGS: Punctate densities overlying the chest thought to be clothing artifact.. Heart size is normal with normal pulmonary vascularity. No pleural effusion or pneumothorax. Lungs are clear with no consolidating infiltrate. Lateral view shows intact sternum and degenerative spurring in the T-spine. IMPRESSION: No acute process is identified in the chest. Electronically signed by: Abdon Mcguire MD 09/02/2019 10:48 AM CDT
== END ==
LOC: RAD 10:19
PROVIDERS: ATTEND Family Medicine
DX: R06.00 Dyspnea, unspecified (principal); R00.2 Palpitations

== ENCOUNTER 2019-09-04 22:31 | Emergency (ER) | payer MEDICARE ==
[2019-09-04] MEDS ORDERED: SODIUM CHLORIDE 0.9% (FLUSH) 10 ML SYG IV PRN (22:41)
[2019-09-04 22:56] VITALS: TEMP 99.6
--- NOTE | 2019-09-04 23:23 | RAD ---
EXAM: XR Chest, 1 View CLINICAL HISTORY: The patient is 64 years old and is Female; elevated blood pressure TECHNIQUE: Frontal view of the chest. COMPARISON: Chest radiograph September 02, 2019. FINDINGS: LUNGS: Unremarkable. No consolidation. PLEURAL SPACE: Unremarkable. No pneumothorax. HEART: Unremarkable. No cardiomegaly. MEDIASTINUM: Unremarkable. BONES/JOINTS: Unremarkable. IMPRESSION: No acute cardiopulmonary process. Electronically signed by: Deirdre Gonzalez MD 09/04/2019 11:22 PM CDT
--- NOTE | 2019-09-05 00:09 | ED.PDOC ---
History of Present Illness - General Chief Complaint: Blood Pressure Problem Stated Complaint: high blood pressure Time Seen by Provider: 09/04/19 22:41 Source: patient - History of Present Illness Initial Comments: 64 yo female with PMH of HTN who presents with cc of high blood pressure. Reports has been elevated higher than usual for about the past 24 hours. Began at midnight last night then improved throughout the morning, but worsened again this evening. Highest BP was last night at 180/100s. This evening it was running 160s/90s consistently so pt became worried and came to the ED. She lamberto es Lisinopril 20 mg PO BID, HCTZ 12.5 mg daily, Atenolol 50 mg daily, and Clonidine 0.1 mg PO BID. Reports some occasional brief fluttering sensation in the center of her chest which occurs intermittently now for several months, had a brief episode earlier today. Also reports moderate MILNER and nausea earlier but now improved. Denies any chest pain, dyspnea, cough, fevers, chills, abd pain, leg swelling. No reported hx of CAD, CHF, or CVA. Her PCP is Dr. Ricketts. Allergies/Adverse Reactions: Allergies Codeine Allergy (Unknown, Verified 09/04/19 22:56) Iodine Allergy (Unknown, Verified 09/04/19 22:56) Latex Allergy (Verified 09/04/19 22:56) Shellfish Allergy Allergy (Verified 09/04/19 22:56) Home Medications: Ambulatory Orders Aspirin [Baby Aspirin] 81 mg PO QD 04/02/16 Atenolol [Tenormin] 50 mg PO DAILY 04/02/16 Hydrochlorothiazide 12.5 mg PO DAILY 04/02/16 Lisinopril 20 mg PO DAILY@0700 04/02/16 Calcium Carbonate-Cholecalcife [Calcium 500 +D3 500-600 mg-Unit] 3 tab PO DAILY 07/01/18 Magnesium [Chelated Magnesium] 400 mg PO DAILY 07/01/18 Potassium Gluconate [Potassium] 99 mg PO BID 07/01/18 Clonidine HCl 0.1 mg PO BID PRN #30 tab 07/06/18 Tramadol HCl 50 mg PO Q6H PRN 14 Days #20 tab 02/27/19 Review of Systems - Review of Systems Review of Systems: 09/05/19 00:36 as per HPI All other Systems: Reviewed and Negative Past Medical History (General) - Patient Medical History Hx Seizures: No Hx Stroke: No Hx Dementia: No Hx Asthma: No Hx of COPD: No Hx Cardiac Disorders: Yes - arrythmias, valve leakage Hx Congestive Heart Failure: No Hx Pacemaker: No Hx Hypertension: Yes Hx Thyroid Disease: No Hx Diabetes: No Hx Gastroesophageal Reflux: Yes Hx Renal Disease: No Hx Cancer: Yes - skin Hx of HIV: No Hx Hepatitis C: No Hx MRSA: No Surgical History: appendectomy, cholecystectomy - Vaccination History Hx Tetanus, Diphtheria Vaccination: No Hx Influenza Vaccination: No Hx Pneumococcal Vaccination: No - Social History Hx Tobacco Use: Yes Hx Alcohol Use: No Hx Substance Use: No Hx Depression: No - Female History Patient : No Family Medical History - Family History Mother Family History: Unknown Living Status: Unknown Hx Family Congestive Heart Failure: Yes Hx Family Hypertension: Yes Hx Family Stroke: Yes Hx Family Diabetes: Yes Father Hx Family Congestive Heart Failure: Yes Physical Exam - Physical Exam General Appearance: Alert, Comfortable, No apparent distress Eye Exam: bilateral normal Ears, Nose, Throat: hearing grossly normal, normal ENT inspection, normal pharynx Neck: non-tender, full range of motion, supple, normal inspection Respiratory: chest non-tender, lungs clear, normal breath sounds, no respiratory distress, no accessory muscle use Cardiovascular/Chest: normal peripheral pulses, regular rate, rhythm, no edema, no gallop, no JVD, no murmur Peripheral Pulses: radial,right: 2+, radial,left: 2+ Gastrointestinal/Abdominal: non tender, soft, no organomegaly Back Exam: normal inspection, no CVA tenderness, no vertebral tenderness Extremity: normal range of motion, non-tender, normal inspection, no pedal edema, no calf tenderness 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 Consider also hypertensive urgency, ACS, CHF, electrolyte derangement, valvular abnormality, other -obtain cardiac work-up, labs, monitor on tele 09/05/19 00:38 -BP improved to 140s/90s for >1.5 hours now with no interventions. Pt remains stable, MILNER resolved, no chest pain. -CXR no acute processes per my read -labs unremarkable -discussed that BP is elevated but not to an emergent level requiring aggressive IV antihypertensives. She will need continued close f/u with her PCP to continue to titrate her oral meds to an effective regimen. Kevin Santana MD Billing #[id number] 09/04/19 22:41 IV Care:Saline Lock per Protoc QSHIFT Telemetry .ONCE Sodium Chloride 0.9% (Flush) [Saline Flush Syringe] 10 ml IV PRN PRN Pulse Oximetry Assessment DAILY 09/04/19 22:45 EKG STAT 09/05/19 09:00 Pulse Ox Daily Laboratory Results - last 24 hr 09/04/19 09/04/19 09/04/19 22:48 22:48 22:48 WBC 7.8 RBC 4.87 Hgb 14.8 Hct 44.2 MCV 90.6 MCH 30.5 MCHC 33.6 RDW 14.7 H Plt Count 187 MPV 8.0 Absolute Neuts (auto) 4.20 Absolute Lymphs (auto) 2.50 Absolute Monos (auto) 0.60 Absolute Eos (auto) 0.40 Absolute Basos (auto) 0.00 Neutrophils % 54.4 Lymphocytes % 32.4 Monocytes % 7.2 Eosinophils % 5.6 H Basophils % 0.4 Sodium 138 Potassium 3.5 L Chloride 104 Carbon Dioxide 26 Anion Gap 11.5 L BUN 26 H Creatinine 0.82 BUN/Creatinine Ratio 31.7 H Random Glucose 102 Serum Osmolality 280.6 Calcium 9.7 Troponin I < 0.02 B-Natriuretic Peptide 90.4 - EKG/XRAY/CT EKG: Sinus - NSR, HR 75, no ST elevs or q waves, nonspecific ST & T wave abnormalities diffusely, axis & intervals normal, unchanged from 06/30/2019 EKG Departure - Departure Clinical Impression: Uncontrolled hypertension Time of Disposition: 00:29 Disposition: Discharge to Home or Self Care Condition: Good Departure Forms: ED Discharge - Pt. Copy, Patient Portal Self Enrollment Instructions: DI for High Blood Pressure Diet: low salt diet Activity: increase activity as tolerated Referrals: Ayo Ricketts MD [Primary Care Provider] - 1-2 Weeks Home Medications: Ambulatory Orders Aspirin [Baby Aspirin] 81 mg PO QD 04/02/16 Atenolol [Tenormin] 50 mg PO DAILY 04/02/16 Hydrochlorothiazide 12.5 mg PO DAILY 04/02/16 Lisinopril 20 mg PO DAILY@0700 04/02/16 Calcium Carbonate-Cholecalcife [Calcium 500 +D3 500-600 mg-Unit] 3 tab PO DAILY 07/01/18 Magnesium [Chelated Magnesium] 400 mg PO DAILY 07/01/18 Potassium Gluconate [Potassium] 99 mg PO BID 07/01/18 Clonidine HCl 0.1 mg PO BID PRN #30 tab 07/06/18 Tramadol HCl 50 mg PO Q6H PRN 14 Days #20 tab 02/27/19 Additional Instructions: Return if you develop any concerning symptoms such as chest pain, shortness of breath, rapidly worsening or severe headache, or if your blood pressure remains higher than 180 systolic (top number) or 110 diastolic (bottom number). Follow up with your primary care doctor in next 1-2 weeks for repeat evaluation of you high blood pressure and medications. Bring your blood pressure log to this visit for his review.
[2019-09-05 00:34] VITALS: BP 156/95; O2SAT 95
== END 2019-09-05 00:42 | disposition home or self-care (01) ==
LOC: ER 22:31
DX: I10 Essential (primary) hypertension (principal); R51 Headache; F17.200 Nicotine dependence, unspecified, uncomplicated; Z79.899 Other long term (current) drug therapy

== ENCOUNTER → 2019-09-09 | Outpatient (CLI) | payer MEDICARE | LOC: ECHO 09:57 | PROVIDERS: ATTEND Family Medicine | DX: R00.2 Palpitations (principal); I31.3 Pericardial effusion (noninflammatory); I34.0 Nonrheumatic mitral (valve) insufficiency; I35.2 Nonrheumatic aortic (valve) stenosis with insufficiency; I36.1 Nonrheumatic tricuspid (valve) insufficiency ==

== ENCOUNTER → 2019-10-07 | Outpatient (CLI) | payer MEDICARE | LOC: NM 09:00 | PROVIDERS: ATTEND Family Medicine | DX: R94.31 Abnormal electrocardiogram [ECG] [EKG] (principal) ==

== ENCOUNTER → 2019-11-04 | Outpatient (CLI) | payer MEDICARE | LOC: LAB.O 16:14 | PROVIDERS: ATTEND Nurse Practitioner | DX: N39.0 Urinary tract infection, site not specified (principal) ==

== ENCOUNTER → 2020-03-06 | Outpatient (CLI) | payer MEDICARE | LOC: LAB.O 16:50 | PROVIDERS: ATTEND Family Medicine | DX: Z11.59 Encounter for screening for other viral diseases (principal); R53.83 Other fatigue ==

== ENCOUNTER → 2020-04-11 | Outpatient (CLI) | payer MEDICARE | LOC: YCFC.O 07:38 | PROVIDERS: ATTEND Family Medicine | DX: R73.01 Impaired fasting glucose (principal) ==

== ENCOUNTER → 2020-04-12 | Outpatient (CLI) | payer MEDICARE ==
--- NOTE | 2020-04-13 16:19 | US ---
US THYROID CLINICAL STATEMENT:64 years Female NODULE. Previous biopsy performed on nodule 1, May 17: Pathology-" Predominantly blood with no significant follicular epithelial cell or colloid component." COMPARISON: Ultrasound thyroid March 2019. Ultrasound-guided biopsy of thyroid May 11 and May 27. TECHNIQUE: Transcutaneous scanning, grayscale and Doppler modes. FINDINGS: Size right thyroid lobe: 4.7 x 2.0 x 1.8 cm Size left thyroid lobe: 4.5 x 1.8 x 1.7 cm Size isthmus: 0.28 cm Estimated total number of nodules greater than or equal to 1 cm: 1. Nodule 1: Size: 2.0 x 1.4 x 1.0 cm. 2.5 x 2.0 x 1.1 cm on the prior examination. Location: Left Mid Composition: solid or almost completely solid: 2 points. Peripheral vascularity color Doppler. Echogenicity: hypoechoic: 2 points Shape: wider than tall: 0 points Margins: smooth: 0 points Echogenic foci: none: 0 points ACR Total Points: 4. Nodule 2: Size: 0.9 x 0.6 x 0.4 cm. 0.9 x 0.8 x 0.4 cm on the prior study. Location: Right Upper Composition: solid or almost completely solid: 2 points Echogenicity: hypoechoic: 2 points Shape: wider than tall: 0 points Margins: smooth: 0 points Echogenic foci: None. ACR Total Points: 4; ACR TI-RADS risk category: TR4 - moderately suspicious nodule. Nodule 3: Not visualized on this study. No dominant solid mass, no distinct cysts, no fluid collection, and no large calcifications in the surrounding soft tissues. IMPRESSION: 1. Nodule 1: ACR TI-RADS 2017 Category TR4. Smaller size or stable appearance since the prior biopsy. Recommend: Follow-up ultrasound in 1 year.. Recommendations based upon [employer] [facility] Best Practice recommendations and ACR TI-RADS 2017 guidelines. Please see below*. 2. Nodule 2: ACR TI-RADS 2017 Category TR4. Recommend: No further follow-up. 3. Soft tissue around the thyroid gland is unremarkable. *ACR TI-RADS 2017 Recommendations for imaging follow-up of nodules (baseline study): TR1: No FNA or follow up TR2: No FNA or follow up TR3: FNA if >/= 2.5 cm, follow up if 1.5 - 2.4 cm in 1, 3, and 5 years TR4: FNA if >/= 1.5 cm, follow up if 1.0 - 1.4 cm in 1, 2, 3, and 5 years TR5: FNA if >/= 1.0 cm, follow up if 0.5 - 0.9 cm every year for 5 years ACR TI-RADS recommends that no more than two nodules with the highest ACR TI-RADS total point should be biopsied and no more than four nodules should be followed. These recommendations do not apply to patients with increased risk for thyroid cancer or patients with symptomatic thyroid disease. Electronically signed by: Shankar Falk MD 04/13/2020 4:17 PM [facility]
== END ==
LOC: US 13:27
PROVIDERS: ATTEND Family Medicine
DX: E04.1 Nontoxic single thyroid nodule (principal)

== ENCOUNTER → 2020-04-17 | Outpatient (CLI) | payer MEDICARE ==
--- NOTE | 2020-04-17 14:25 | MAM ---
EXAM DESCRIPTION: 3D Screening BILATERAL : Digital Mammography. CLINICAL HISTORY: 64 years Female SCREENING . No complaints. No family history of breast cancer. Menarche age 12. Childbirth age 17. Menopause age 47. No HRT. Bilateral Benign breast biopsy.. Lifetime risk of developing breast cancer (Tyrer-Cuzick model)(%): 6.8. COMPARISON: Bilateral screening digital breast tomosynthesis December 2018 TECHNIQUE: Bilateral CC and MLO projection full-field images, digital tomosynthesis mammographic technique. Bilateral digital 2-D full-field MLO images. CAD available for 2-D images. FINDINGS: The breast parenchymal density pattern is: Scattered areas of fibroglandular density. Bilateral solitary microcalcifications. Axillary nodes. Stable intramammary lymph nodes. No skin thickening or nipple retraction No new focal, stellate mass or density, focal asymmetry , and no suspicious microcalcifications bilaterally. Stable mammograms compared to prior study. IMPRESSION: Benign exam. BIRAD CATEGORY: 2 BENIGN FINDINGS. RECOMMENDATIONS: FOLLOW UP: Routine digital bilateral mammographic screening, one year interval from March 2020. Written communication explaining the IMPRESSION and follow-up, will be mailed to the patient and referring health care provider. According to the [employer], yearly mammograms are recommended starting at age 40 and continuing as long as a woman is in good health. Any breast change noted on a breast self-exam should be reported promptly to the patient's healthcare provider. Breast MRI is recommended for women with an approximately 20-25% or greater lifetime risk of breast cancer, including women with a strong family history of breast or ovarian cancer and women who have been treated for Hodgkin's disease. A negative mammographic report should not delay tissue diagnosis in patients with significant clinical history or physical findings. Extremely dense breast tissue limits the sensitivity of digital mammography. Electronically signed by: Shankar Falk MD 04/17/2020 2:24 PM ROOM MANAGER
== END ==
LOC: MAMMO 10:34
PROVIDERS: ATTEND Family Medicine
DX: Z12.31 Encounter for screening mammogram for malignant neoplasm of breast (principal)

== ENCOUNTER 2020-05-12 05:32 | Day surgery (SDC) | payer MEDICARE ==
[2020-05-12] MEDS ORDERED: LACTATED RINGERS 1,000 ML ONE (06:30)
[2020-05-12] MEDS ORDERED: LIDOCAINE 1% 10 ML VIAL INJ ONE (07:00)
[2020-05-12] MEDS ORDERED: PROPOFOL 200 MG/20 ML VIAL IV ONE (07:00)
--- NOTE | 2020-05-12 10:46 | OP ---
DATE OF PROCEDURE: 05/12/20 PREOPERATIVE DIAGNOSIS: 1. Screening colonoscopy. POSTOPERATIVE DIAGNOSIS: 1. Colon polyps x3. 2. Diverticulosis. PROCEDURE: 1. Colonoscopy. SURGEON: Onur Martell MD PROCEDURE: Digital rectal exam was normal. The colonoscope was inserted and passed to the cecum without difficulty. There was a single polyp in the cecum, approximately 2 mm. This was excised completely. Upon withdrawal, two additional polyps were seen, one at 30 cm and one at 15 cm. Both were under 0.5 cm. They were completely removed. The remainder of the exam was normal. The prep had some small debris of stool around the medel, but we were able to irrigate and aspirate that and got ultimately an adequate exam. I will see her in followup. #[id number] cc: Ayo Ricketts MD MTDD
[2020-05-12 11:37] VITALS: BP 145/58; TEMP 97; O2SAT 97
== END 2020-05-12 11:30 | disposition home or self-care (01) ==
LOC: AMB 05:32
PROVIDERS: ATTEND Surgery
DX: Z12.11 Encounter for screening for malignant neoplasm of colon (principal); K63.5 Polyp of colon; D12.0 Benign neoplasm of cecum; K57.30 Diverticulosis of large intestine without perforation or abscess without bleeding; I10 Essential (primary) hypertension; Z88.5 Allergy status to narcotic agent; Z88.8 Allergy status to other drugs, medicaments and biological substances; Z91.040 Latex allergy status; Z79.82 Long term (current) use of aspirin; Z79.899 Other long term (current) drug therapy
CPT/HCPCS: 00812; 45380; 88305; J3490; J7120